=== PATIENT | female | born 1950 | race Caucasian/White ===

== ENCOUNTER 2024-03-16 20:23 | Inpatient (IN) | payer MEDICARE, OTHER, SELFPAY ==
[2024-03-16] VITALS (9 sets, daily range): BP systolic 164–181; BP diastolic 76–86; PULSE 70–80; RESP 18; TEMP 36.6; O2SAT 94–98; BMI 22.0
--- NOTE | 2024-03-16 21:03 | DI.RAD.S_ITS ---
PROCEDURE: XR HIP W PEL IF DONE LT 2V INDICATIONS: Fall, unable to ambulate TECHNIQUE: 2 views of the hip were acquired. COMPARISON: None. FINDINGS: Bones: Moderately impacted and displaced left subcapital hip fracture. Background degenerative changes. Soft tissues: No suspicious calcifications IMPRESSION: Left hip fracture Dictated by: Jered Pineda M.D. on 03/16/2024 at 22:07 Approved by: Jered Pineda M.D. on 03/16/2024 at 22:08
--- NOTE | 2024-03-16 21:23 | EKG_ITS ---
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
--- NOTE | 2024-03-16 21:28 | ED_ITS ---
HPI - Fall General Chief Complaint: Fall Stated Complaint: fall L hip Time Seen by Provider: 03/16/24 21:22 Source: patient and EMS Mode of arrival: EMS History of Present Illness HPI Narrative: 74-year-old female with history of multiple sclerosis diagnosed approximately 12 years ago, followed by [facility] Neurology, left knee pain awaiting elective surgery by local orthopedic surgeon Dr. Shepard scheduled for September 2024, tonight few hours ago fell outside their recreational vehicle, ground level fall, complaining of left-sided hip pain. No pain to the distal left lower extremity. No pain to either upper extremity. No head, neck, upper back, lower back, chest, abdominal discomfort. No pain to right lower extremity. She does not take blood thinner medications. Related Data Allergies Allergy/AdvReac Type Severity Reaction Status Date / Time No Known Drug Allergies Allergy Verified 03/16/24 20:32 Review of Systems Review of Systems Narrative: see HPI Patient History Social History Smoking Status: Never smoker Smoking Status: Never smoker alcohol intake frequency: 0-2 drinks per day Substance Use Type: does not use Exam Narrative Exam Narrative: GENERAL: Well-developed patient, in mild distress. HEAD: Atraumatic. Normocephalic. EYES: Pupils equal round and reactive. Extraocular motions intact. No scleral icterus. No injection or drainage. ENT: Nose without bleeding, purulent drainage. Throat without erythema, tonsillar hypertrophy or exudate. Airway patent. NECK: Trachea midline. Non tender CARDIOVASCULAR: Regular rate and rhythm without murmurs, gallops, or rubs. RESPIRATORY: Clear to auscultation. Breath sounds equal bilaterally. No wheezes, rales, or rhonchi. GASTROINTESTINAL: Abdomen soft, non-tender, nondistended. EXTREMITIES: Tenderness to left anterior hip, not particularly tender laterally, some slight shortening left lower extremity. Good distal pulses. BACK: Nontender without deformity or crepitance. No flank tenderness. NEURO: AOx3. Motor function grossly nonfocal, limited by left lower extremity orthopedic pain injury SKIN: No rash or erythema of visible areas Initial Vital Signs Initial Vital Signs: Vital Signs Temperature 97.9 F 03/16/24 20:29 Pulse Rate 75 03/16/24 20:29 Respiratory Rate 18 03/16/24 20:29 Blood Pressure 181/86 H 03/16/24 20:29 Pulse Oximetry 98 03/16/24 20:29 Oxygen Delivery Method Room Air 03/16/24 20:29 Course Orders Ordered: ED Orders 03/16/24 21:03 XR hip w pel if done LT 2V Stat 03/16/24 21:23 CBC Auto Diff [Complete Blood Count AUTO DIFF] Stat CMP [Comprehensive Metabolic Panel] Stat Prothrombin Time INR Stat EKG-12 Lead Stat 03/16/24 21:26 XR chest 1V Stat 03/16/24 23:02 Urinalysis and Microscopic Stat Urine Culture Stat Discontinued Medications Hydromorphone HCl (Hydromorphone 0.5 Mg Inj) 0.5 mg IV NOW ONE Stop: 03/16/24 21:25 Last Admin: 03/16/24 21:31 Dose: 0.5 mg Documented By: TAJ Ondansetron HCl (Ondansetron 4 Mg/2 Ml Inj) 4 mg IV NOW ONE Stop: 03/16/24 21:25 Last Admin: 03/16/24 21:31 Dose: 4 mg Documented By: TAJ Vital Signs Vital signs: Vital Signs - 8 hr 03/16/24 20:29 Temperature 97.9 F Pulse Rate 75 Respiratory Rate 18 Blood Pressure 181/86 H Pulse Oximetry 98 Oxygen Delivery Method Room Air MDM - Fall Lab Data Attestation: I reviewed the patient's lab results. 03/17/24 00:07 03/17/24 00:07 Labs: Lab Results 03/16/24 03/17/24 Range/Units 23:02 00:07 WBC 11.0 (4.5-11.0) X10^3/uL RBC 4.19 (4.0-5.2) X10^6/uL Hgb 13.8 (12.0-16.0) g/dL Hct 39.7 (36-46) % MCV 94.7 (80-100) fL MCH 33.1 (26-34) PG MCHC 34.9 (30-36) % RDW 12.6 (11.6-14.8) % Plt Count 244 (150-400) X10^3/uL Neut % (Auto) 80.0 H (50-75) % Lymph % (Auto) 14.3 L (25-40) % [place] % (Auto) 4.9 (3-14) % Eos % (Auto) 0.3 L (2-4) % Baso % (Auto) 0.5 (0-2) % Neut # (Auto) 8800 H (2623-3324) /uL Lymph # (Auto) 1600 (9709-0630) /uL [place] # (Auto) 500 (0-900) /uL Eos # (Auto) 0 (0-450) /uL Baso # (Auto) 100 (0-100) /uL PT 10.9 (9.4-12.5) SECONDS INR 1.0 (0.9-1.3) Sodium 139 (137-145) mmol/L Potassium 3.9 (3.4-5.1) mmol/L Chloride 104 (98-107) mmol/L Carbon Dioxide 22 (22-32) mmol/L BUN 16 (7-17) mg/dL Creatinine 0.47 L (0.52-1.04) mg/dL Estimated GFR > 60 (>60) mL/min BUN/Creatinine Ratio 34.0 H (6-22) Glucose 106 (80-110) mg/dL Calcium 9.0 (8.4-10.2) mg/dL Total Bilirubin 0.8 (0.2-1.3) mg/dL AST 32 (14-36) IU/L ALT 18 (<35) IU/L Alkaline Phosphatase 76 (38-126) U/L Total Protein 7.0 (6.3-8.2) g/dL Albumin 4.4 (3.5-5.0) g/dL Globulin 2.6 (1.7-4.1) g/dL Albumin/Globulin Ratio 1.7 (1.0-2.8) Urine Color Yellow Urine Appearance Sl cloudy Urine pH 6.0 (4.5-8.0) Ur Specific [place] 1.010 (1.000-1.035) Urine Protein Negative (Negative) Urine Glucose (UA) Negative (Negative) g/dL Urine Ketones Negative (NEGATIVE) Urine Occult Blood 1+ H (Negative) Urine Nitrate Negative (Negative) Urine Bilirubin Negative (NEGATIVE) Urine Urobilinogen 0.2 (0.2) E.U./dL Ur Leukocyte Esterase 3+ H (NEGATIVE) Urine RBC None seen (0-5/HPF) Urine WBC 1-5/hpf (0-5/HPF) Ur Squamous Epith Cells 0-1 /hpf (0-5/HPF) Urine Bacteria Few (2-10) H (None) Ur Culture Indicated? Specimen cultured Vol Urine Centrifuged 10ml (spun) Imaging Data Extremity x-ray #1: Radiologist's Impression: [address] [address] XRay Report Signed Patient: Monika Tillman MR#: [id number] : 1950 Acct:[id number] Age/Sex: 74 / F Date of Service: 03/16/24 Loc: ED Accession Number: [id number] Procedure: XR hip w pel if done LT 2V Ordering Provider: Mikey Barrett MD PROCEDURE: XR HIP W PEL IF DONE LT 2V INDICATIONS: Fall, unable to ambulate TECHNIQUE: 2 views of the hip were acquired. COMPARISON: None. FINDINGS: Bones: Moderately impacted and displaced left subcapital hip fracture. Background degenerative changes. Soft tissues: No suspicious calcifications IMPRESSION: Left hip fracture Dictated by: Jered Pineda M.D. on 03/16/2024 at 22:07 Approved by: Jered Pineda M.D. on 03/16/2024 at 22:08 Chest x-ray: My Impression: preop, no acute changes obvious Radiologist's Impression: [address] [address] XRay Report Signed Patient: Monika Tillman MR#: [id number] : 1950 Acct:[id number] Age/Sex: 74 / F Date of Service: 03/16/24 Loc: ED Accession Number: [id number] Procedure: XR chest 1V Ordering Provider: Mikey Barrett MD PROCEDURE: XR CHEST 1V INDICATIONS: preop, has hip fx TECHNIQUE: One view of the chest was acquired. COMPARISON: None. FINDINGS: Surgical changes and devices: None. Lungs and pleura: Low lung volumes. No dense consolidation or pleural effusion Mediastinum: Prominent maral bilaterally. Prominent heart size. Bones and chest wall: Degenerative findings IMPRESSION: Limited single view radiograph with low lung volumes. No acute abnormality. Prominent heart size and hilar structures, otherwise indeterminate on radiography. Dictated by: Jered Pineda M.D. on 03/16/2024 at 22:08 Approved by: Jered Pineda M.D. on 03/16/2024 at 22:09 ECG Data Interpretation: Normal sinus rhythm with rate of 75, no obvious ST segment elevation or depression changes. SC 178, QRS 92, QTC 435. MDM Narrative Medical decision making narrative: 74-year-old female had ground level fall, history of multiple sclerosis awaiting elective left knee surgery September 2024, no prior left hip problems, had hip pain after the fall, some shortening on exam but neurovascularly intact, some tenderness anterior left hip. Screening x-ray left hip shows subcapital fracture, no obvious pelvic ring fracture, await Radiology report. We will send preop labs and EKG and chest x-ray. We will contact Orthopedic surgery, anticipation of admission to hospitalist service Chest x-ray unremarkable, see radiology report. Chest x-ray without obvious ischemic changes. Serum studies still pending. 2314, case discussed with Orthopedic surgery Dr. Sullivan, he will consult, admit to hospitalist service. 003, still awaiting GFR/Creat results 0100, GFR normal, consult hospitalist 0120, case discussed with hospitalist Dr. Byers, accepts patient for admission to inpatient Critical Care Time Critical Care Time Total Critical Care Time: 35 Attestation: The high probability of a clinically significant, sudden or life threatening deterioration of the [Orthopedic, cardiopulmonary, musculoskeletal] system(s) required my full and direct attention, intervention and personal management. The aggregate critical care time was [35] minutes. This time is in addition to time spent performing reported procedures but includes the following: [x] Data Review and interpretation [x] Patient assessment and monitoring of vital signs [x] Documentation [x] Medication orders and management Discharge Plan Departure Patient Disposition: Admitted As Inpatient Clinical Impression: Subcapital fracture of left hip Admit Date/Time: 03/17/24 01:20
[2024-03-16] MEDS: ONDANSETRON 4 MG/2 ML INJ IV (21:31)
[2024-03-16] MEDS: HYDROMORPHONE 0.5 MG INJ IV (21:31)
[2024-03-16 23:16] LABS: Bilirubin Urine UA NEGATIVE (NEGATIVE); Color Urine UA YELLOW; Glucose Urine UA NEGATIVE (Negative); Ketones Urine UA NEGATIVE (NEGATIVE); Leukocyte Esterase Urine UA 3+ (NEGATIVE); Nitrite Urine UA NEGATIVE (Negative); Occult Blood Urine UA 1+ (Negative); Protein Urine UA NEGATIVE (Negative); Urobilinogen Urine UA 0.2 E.U./dL (0.2)
[2024-03-16 23:26] LABS: Appearance Urine UA SL CLOUDY
[2024-03-16 23:27] LABS: Bacteria Urine Few (2-10); Culture Indicated Urine Specimen Cultured; RBC Urine None Seen (0-5/HPF); Squamous Epithelial Cell Urine 0-1 /HPF (0-5/HPF); Urine Volume 10mL (spun); WBC Urine 1-5/HPF (0-5/HPF)
[2024-03-17 00:20] LABS: Prothrombin Time 10.9 SECONDS (9.4-12.5)
[2024-03-17 00:49] LABS: Add Manual Diff / Slide Review NO; Basophils Absolute Auto 100 /uL (0-100); Basophils Percent Auto 0.5 % (0-2); Eosinophils Absolute Auto 0 /uL (0-450); Eosinophils Percent Auto 0.3 % (2-4); Hematocrit 39.7 % (36-46); Hemoglobin 13.8 g/dL (12.0-16.0); Lymphocytes Absolute Auto 1600 /uL (1100-4500); Lymphocytes Percent Auto 14.3 % (25-40); Mean Corpuscular HGB Conc 34.9 % (30-36); Mean Corpuscular Hemoglobin 33.1 PG (26-34); Mean Corpuscular Volume 94.7 fL (80-100); Monocytes Absolute Auto 500 /uL (0-900); Monocytes Percent Auto 4.9 % (3-14); Neutrophils Absolute Auto 8800 /uL (1500-7000); Platelet Count 244 X10^3/uL (150-400); Red Blood Cell Count 4.19 X10^6/uL (4.0-5.2); Red Cell Distribution Width 12.6 % (11.6-14.8)
[2024-03-17 00:55] LABS: Alanine Aminotransferase 18 IU/L (<35); Albumin 4.4 g/dL (3.5-5.0); Albumin Globulin Ratio 1.7 (1.0-2.8); Alkaline Phosphatase 76 U/L (38-126); Aspartate Aminotransferase 32 IU/L (14-36); Bilirubin Total 0.8 mg/dL (0.2-1.3); Blood Urea Nitrogen 16 mg/dL (7-17); Carbon Dioxide 22 mmol/L (22-32); Chloride 104 mmol/L (98-107); Estimated Glomerular Filt Rate > 60 mL/min (>60); Globulin 2.6 g/dL (1.7-4.1); Glucose 106 mg/dL (80-110); HEMOLYSIS < 15 (0-50); Potassium 3.9 mmol/L (3.4-5.1); Sodium 139 mmol/L (137-145)
[2024-03-17] MEDS: HYDROMORPHONE 0.5 MG INJ IV ×2 (01:51→21:22)
[2024-03-17 01:53] VITALS: BP 139/73; PULSE 82; RESP 16; TEMP 36.3; O2SAT 94
[2024-03-17 02:00] VITALS: BP 142/83; PULSE 79; RESP 12; TEMP 36.2; O2SAT 95
[2024-03-17 02:24] VITALS: BMI 22.0
[2024-03-17] MEDS: OXYCODONE IR 5 MG TABLET PO ×3 (02:33→17:32)
[2024-03-17] MEDS: ONDANSETRON 4 MG/2 ML INJ IV ×2 (02:34→07:20)
[2024-03-17] MEDS: SODIUM CHLORIDE 0.9% 1,000 ML 100 ML IV ×2 (02:37→15:30)
--- NOTE | 2024-03-17 02:47 | PM.HP.1 ---
History of Present Illness History of Present Illness Chief complaint: fall L hip Narrative: 74 year old female with past medical history of multiple sclerosis diagnosed 12 years ago and being followed by [facility] neurology group and severe left knee pain sceondary to OA awaiting surgery in 09/2024 presents with a ground level fall. Per the patient's report, the patient states that she was walking when she accidentally loss balance and fell onto her left hip. The patient denies any head injury or LOC. The patient also denies any recent fever, chills, nausea, vomiting, diarrhea, chest pain or shortness of breath. The patient states that she has significant pain in her left hip post fall and unable to ambulate. In our ER, the patient was hemodynamically stable. Xray shows left hip fracture. Orthopedic surgeon consulted and recommendedd admission for possible surgical intervention in AM. Labs and EKG are benign. However UA shows some LEs and few bacteria. PFSH Social History household members: spouse Smoking Status: Never smoker Meds Home Medications and Allergies Home Medications Medication Instructions Recorded Confirmed Type Imitrex 50 mg DIRECTED PRN Migraine 03/17/24 03/17/24 History Headache bupropion HCl 150 mg 24 hr tablet, 150 mg PO DAILY 03/17/24 03/17/24 History extended release gabapentin 300 mg capsule PO 4XD PRN restless leg 03/17/24 History metronidazole 1 % topical gel 1 applic topical DAILY 03/17/24 03/17/24 History oxcarbazepine 300 mg tablet 300 mg PO 3XD PRN Restless Leg(S) 03/17/24 03/17/24 History Allergies Allergy/AdvReac Type Severity Reaction Status Date / Time No Known Drug Allergies Allergy Verified 03/16/24 20:32 Review of Systems Review of Systems Narrative: 12 points ROS of systems are negative except for what was mentioned per HPI. Exam Vital Signs (past 8 hours): - 03/16/24 20:28 03/16/24 20:29 03/16/24 20:30 Temperature 97.9 F Pulse Rate 74 75 70 Respiratory Rate 18 Blood Pressure 181/86 H Pulse Oximetry 94 98 95 Oxygen Delivery Method Room Air Room Air 03/16/24 20:30 03/16/24 21:00 03/16/24 21:00 Temperature Pulse Rate 72 Respiratory Rate Blood Pressure 175/82 H 164/76 H Pulse Oximetry 98 Oxygen Delivery Method 03/16/24 21:30 03/16/24 22:00 03/16/24 22:30 Temperature Pulse Rate 71 70 71 Respiratory Rate Blood Pressure Pulse Oximetry 98 95 95 Oxygen Delivery Method 03/16/24 23:00 03/16/24 23:30 03/17/24 01:53 Temperature 97.4 F L Pulse Rate 80 74 82 Respiratory Rate 16 Blood Pressure 139/73 Pulse Oximetry 96 97 94 Oxygen Delivery Method Room Air Room Air Oxygen Delivery Method Room Air Narrative Exam Narrative: GENERAL: The patient is not in any acute distressed. Awake and alert. HEENT: Nonicteric sclerae, PERRLA, EOMI. Oropharynx clear. Moist mucous membranes. Conjunctivae appear well perfused. HEART: Regular rate and rhythm without murmurs. No lower extremities edema. LUNGS: Clear to auscultation bilaterally. No wheezing, crackles or rhonchi ABDOMEN: Soft, positive bowel sounds, nontender. SKIN: No rash, no excessive bruising, petechiae, or purpura. NEUROLOGIC: AxO x 3. Cranial nerves II-XII intact without motor/sensory deficit. though limited movement in LLEs due to left hip pain. Objective Labs 03/17/24 00:07 03/17/24 00:07 Labs: Laboratory Results - last 24 hr 03/16/24 03/17/24 23:02 00:07 WBC 11.0 RBC 4.19 Hgb 13.8 Hct 39.7 MCV 94.7 MCH 33.1 MCHC 34.9 RDW 12.6 Plt Count 244 Neut % (Auto) 80.0 H Lymph % (Auto) 14.3 L [place] % (Auto) 4.9 Eos % (Auto) 0.3 L Baso % (Auto) 0.5 Neut # (Auto) 8800 H Lymph # (Auto) 1600 [place] # (Auto) 500 Eos # (Auto) 0 Baso # (Auto) 100 PT 10.9 INR 1.0 Sodium 139 Potassium 3.9 Chloride 104 Carbon Dioxide 22 BUN 16 Creatinine 0.47 L Estimated GFR > 60 BUN/Creatinine Ratio 34.0 H Glucose 106 Calcium 9.0 Total Bilirubin 0.8 AST 32 ALT 18 Alkaline Phosphatase 76 Total Protein 7.0 Albumin 4.4 Globulin 2.6 Albumin/Globulin Ratio 1.7 Urine Color Yellow Urine Appearance Sl cloudy Urine pH 6.0 Ur Specific [place] 1.010 Urine Protein Negative Urine Glucose (UA) Negative Urine Ketones Negative Urine Occult Blood 1+ H Urine Nitrate Negative Urine Bilirubin Negative Urine Urobilinogen 0.2 Ur Leukocyte Esterase 3+ H Urine RBC None seen Urine WBC 1-5/hpf Ur Squamous Epith Cells 0-1 /hpf Urine Bacteria Few (2-10) H Ur Culture Indicated? Specimen cultured Vol Urine Centrifuged 10ml (spun) Assessment & Plan Assessment & Plan narrative: Left hip fracture secondary to ground level fall. Admit to medical inpatient. NPO. IVF. Pain control. Appreciates orthopedic surgical manageent. Likely OR in AM. Patient is medically cleared for OR in AM. PT/OT post op. Possible UTI with positive LEs a some bacteria on UA. IV Ceftriaxone. MS. Being followed by [facility] neurology group as outpatient. No sign of MS flare. DVT PPx SCDs for now as plan for OR in AM. Code status full code Disposition rehab in 2 days Time-Based Coding :: [TOTAL MINUTES] spent with patient and on the chart (including review of chart, obtaining history, exam, reviewing outside data, placing orders, documenting exam and treatment plan, and counseling patient) on [DATE].
[2024-03-17] MEDS: METOCLOPRAMIDE 10 MG/2 ML INJ 5 MG IV (03:46)
--- NOTE | 2024-03-17 04:13 | PC.NURSE ---
pt received from ED. Alert,oriented x4, on room air. L hip fracture, pulses palpable,able to wiggle toes,sensation present. voids per purewick, however pt still c/o urgency, still needing to go and pelvic discomfort/fullness. bladder scan done PVR 900. nauseous and dry heaving despite receiving MD chika updated, with orders, pt updated and agreeable. IV Reglan given, langston cath placed aseptically, tolerated well by pt. NPO per order, pt aware.
[2024-03-17 06:21] LABS: Add Manual Diff / Slide Review NO; Basophils Absolute Auto 0 /uL (0-100); Basophils Percent Auto 0.3 % (0-2); Eosinophils Absolute Auto 0 /uL (0-450); Hemoglobin 13.9 g/dL (12.0-16.0); Lymphocytes Absolute Auto 700 /uL (1100-4500); Lymphocytes Percent Auto 7.8 % (25-40); Mean Corpuscular HGB Conc 34.7 % (30-36); Mean Corpuscular Hemoglobin 32.9 PG (26-34); Mean Corpuscular Volume 94.8 fL (80-100); Monocytes Absolute Auto 400 /uL (0-900); Monocytes Percent Auto 4.2 % (3-14); Neutrophils Absolute Auto 7900 /uL (1500-7000); Neutrophils Percent Auto 87.7 % (50-75); Platelet Count 234 X10^3/uL (150-400); Red Blood Cell Count 4.22 X10^6/uL (4.0-5.2); Red Cell Distribution Width 12.6 % (11.6-14.8)
[2024-03-17 06:30] LABS: BUN Creatinine Ratio 33.3 (6-22); Blood Urea Nitrogen 15 mg/dL (7-17); Calcium 8.7 mg/dL (8.4-10.2); Carbon Dioxide 23 mmol/L (22-32); Chloride 103 mmol/L (98-107); Estimated Glomerular Filt Rate > 60 mL/min (>60); Glucose 119 mg/dL (80-110); HEMOLYSIS < 15 (0-50); Potassium 3.9 mmol/L (3.4-5.1); Sodium 136 mmol/L (137-145)
[2024-03-17] MEDS: cefTRIAXone 1,000 MG in SODIUM CHLORIDE 0.9% 100 ML 200 MG IV (06:53)
[2024-03-17 07:00] VITALS: BP 167/94; PULSE 74; RESP 16; TEMP 36.2; O2SAT 98
--- NOTE | 2024-03-17 07:16 | PM.HP.1 ---
History of Present Illness History of Present Illness Date Patient Seen: 03/17/24 Chief complaint: fall L hip Narrative: From night doctor: 74 year old female with past medical history of multiple sclerosis diagnosed 12 years ago and being followed by [facility] neurology group and severe left knee pain sceondary to OA awaiting surgery in 09/2024 presents with a ground level fall. Per the patient's report, the patient states that she was walking when she accidentally loss balance and fell onto her left hip. The patient denies any head injury or LOC. The patient also denies any recent fever, chills, nausea, vomiting, diarrhea, chest pain or shortness of breath. The patient states that she has significant pain in her left hip post fall and unable to ambulate. In our ER, the patient was hemodynamically stable. Xray shows left hip fracture. Orthopedic surgeon consulted and recommendedd admission for possible surgical intervention in AM. Labs and EKG are benign. However UA shows some LEs and few bacteria. Additional infrmation: She has a history of migraine headaches which are responsive to sumatriptan. She was a headache this morning. This is throbbing and there is some photophobia. She was some nausea as well. Her hip pain is controlled. Orthopedic surgery did see her this morning are discussing repair of the hip today versus tomorrow depending on OR schedule. [facility] Social History household members: spouse Smoking Status: Never smoker Meds Home Medications and Allergies Home Medications Medication Instructions Recorded Confirmed Type Imitrex 50 mg DIRECTED PRN Migraine 03/17/24 03/17/24 History Headache bupropion HCl 150 mg 24 hr tablet, 150 mg PO DAILY 03/17/24 03/17/24 History extended release gabapentin 300 mg capsule PO 4XD PRN restless leg 03/17/24 History metronidazole 1 % topical gel 1 applic topical DAILY 03/17/24 03/17/24 History oxcarbazepine 300 mg tablet 300 mg PO 3XD PRN Restless Leg(S) 03/17/24 03/17/24 History Allergies Allergy/AdvReac Type Severity Reaction Status Date / Time No Known Drug Allergies Allergy Verified 03/16/24 20:32 Review of Systems Review of Systems Narrative: All else reviewed and otherwise unremarkable except as noted in the history and physical. Exam Vital Signs (past 8 hours): - 03/16/24 23:30 03/17/24 01:53 03/17/24 02:00 Temperature 97.4 F L 97.2 F L Pulse Rate 74 82 79 Respiratory Rate 16 12 Blood Pressure 139/73 142/83 H Pulse Oximetry 97 94 95 Oxygen Delivery Method Room Air Room Air Oxygen Flow Rate 0 Oxygen Delivery Method Room Air Oxygen Flow Rate 0 Narrative Exam Narrative: NAD, alert and oriented, fluent speech, calm. Appears uncomfortable. Normocephalic skull, EOMI, anicteric sclera, symmetric pupils. Oropharynx unremarkable, no droop. Neck supple, midline trachea, no adenopathy. Lungs clear, normal rate and effort. Heart regular, no murmur gallop or rub. Abdomen is soft, non distended and non tender. Extremities are free of edema. Skin is free of rash or lesions. Joints are not swollen or deformed. Judgment appears to be normal. Objective ECG Impression: Normal sinus rhythm Imaging Multiple studies:: Radiologist's impression: Hip x-ray: Bones: Moderately impacted and displaced left subcapital hip fracture. Background degenerative changes. Chest x-ray: Limited single view radiograph with low lung volumes. No acute abnormality. Prominent heart size and hilar structures, otherwise indeterminate on radiography. Labs 03/17/24 05:34 03/17/24 05:34 Labs: Laboratory Results - last 24 hr 03/16/24 03/17/24 03/17/24 23:02 00:07 05:34 WBC 11.0 9.0 RBC 4.19 4.22 Hgb 13.8 13.9 Hct 39.7 40.0 MCV 94.7 94.8 MCH 33.1 32.9 MCHC 34.9 34.7 RDW 12.6 12.6 Plt Count 244 234 Neut % (Auto) 80.0 H 87.7 H Lymph % (Auto) 14.3 L 7.8 L [place] % (Auto) 4.9 4.2 Eos % (Auto) 0.3 L 0.0 L Baso % (Auto) 0.5 0.3 Neut # (Auto) 8800 H 7900 H Lymph # (Auto) 1600 700 L [place] # (Auto) 500 400 Eos # (Auto) 0 0 Baso # (Auto) 100 0 PT 10.9 INR 1.0 Sodium 139 136 L Potassium 3.9 3.9 Chloride 104 103 Carbon Dioxide 22 23 BUN 16 15 Creatinine 0.47 L 0.45 L Estimated GFR > 60 > 60 BUN/Creatinine Ratio 34.0 H 33.3 H Glucose 106 119 H Calcium 9.0 8.7 Total Bilirubin 0.8 AST 32 ALT 18 Alkaline Phosphatase 76 Total Protein 7.0 Albumin 4.4 Globulin 2.6 Albumin/Globulin Ratio 1.7 Urine Color Yellow Urine Appearance Sl cloudy Urine pH 6.0 Ur Specific [place] 1.010 Urine Protein Negative Urine Glucose (UA) Negative Urine Ketones Negative Urine Occult Blood 1+ H Urine Nitrate Negative Urine Bilirubin Negative Urine Urobilinogen 0.2 Ur Leukocyte Esterase 3+ H Urine RBC None seen Urine WBC 1-5/hpf Ur Squamous Epith Cells 0-1 /hpf Urine Bacteria Few (2-10) H Ur Culture Indicated? Specimen cultured Vol Urine Centrifuged 10ml (spun) Assessment & Plan Assessment & Plan narrative: 1. Left hip fracture secondary to ground level fall. Admit to medical inpatient. NPO. IVF. Pain control. Appreciates orthopedic surgical manageent. Likely OR in AM. Patient is medically cleared for OR in AM. PT/OT post op. 2. Possible UTI with positive LEs a some bacteria on UA. IV Ceftriaxone. 3. MS. Being followed by [facility] neurology group as outpatient. No sign of MS flare. 4. Migraine headache, new and active. PLAN: -NPO -sumatriptan now -orthopedic surgery is planning ORIF, likely today. -continue IV fluids, [place] catheter. -ASA b.i.d. for prophylaxis. DVT PPx SCDs for now as plan for OR in AM. Code status full code Disposition rehab in 2 days Time-Based Coding :: 35 min spent with patient and on the chart (including review of chart, obtaining history, exam, reviewing outside data, placing orders, documenting exam and treatment plan, and counseling patient) on 03/17. Quality MIPS - Admit I confirm the patient?s Advance Care Plan is present, Code status is documented, Surrogate decision maker is in patient?s record [If Yes, STOP here]: Yes MIPS - Meds 'Current medications' to include all prescriptions, [id number] products, herbals, cannabis/cannabidiol products, and vitamin/mineral/dietary (nutritional) supplements. I have utilized all available resources to obtain, update, or review the patient?s current medications. [If Yes, STOP here]: Yes
--- NOTE | 2024-03-17 08:36 | PC.NURSE ---
Pt alert and oriented, conversant. Just had antiemeticgiven by noc shift at 07:00. Pt rstful cool cloth over eyes.
--- NOTE | 2024-03-17 09:13 | PM.CN ---
History of Present Illness Consult details Date Patient Seen: 03/17/24 Time Patient Seen: 09:13 Chief complaint: fall L hip Narrative: 74-year-old female who yesterday while working in the garden tripped and fell landing on her left side sustaining a left femoral neck fracture. Patient denies hitting her head or any loss of consciousness. Denies any syncopal episodes. Denies any other injuries. After the fall was unable to bear weight on the left leg and was taken to the emergency room where x-rays showed a displaced femoral neck fracture. Patient denies any significant hip pain before the fall. Does have significant arthritis to the left knee and was scheduled for a total knee replacement by Dr. Shepard sometime next year. Meds Home Medications and Allergies Home Medications Medication Instructions Recorded Confirmed Type Imitrex 50 mg DIRECTED PRN Migraine 03/17/24 03/17/24 History Headache bupropion HCl 150 mg 24 hr tablet, 150 mg PO DAILY 03/17/24 03/17/24 History extended release gabapentin 300 mg capsule PO 4XD PRN restless leg 03/17/24 History metronidazole 1 % topical gel 1 applic topical DAILY 03/17/24 03/17/24 History oxcarbazepine 300 mg tablet 300 mg PO 3XD PRN Restless Leg(S) 03/17/24 03/17/24 History Allergies Allergy/AdvReac Type Severity Reaction Status Date / Time No Known Drug Allergies Allergy Verified 03/16/24 20:32 Exam Vital Signs (past 8 hours): - 03/17/24 01:53 03/17/24 02:00 03/17/24 07:00 Temperature 97.4 F L 97.2 F L 97.1 F L Pulse Rate 82 79 74 Respiratory Rate 16 12 16 Blood Pressure 139/73 142/83 H 167/94 H Pulse Oximetry 94 95 98 Oxygen Delivery Method Room Air Oxygen Flow Rate 0 0 Oxygen Delivery Method Room Air Oxygen Flow Rate 0 Narrative Exam Narrative: Patient is alert and in some discomfort to the left side. Full range of motion of bilateral upper extremities and no pain or instability to the shoulder elbows or wrists bilaterally. Compartments are soft neurovascularly intact. Normal range of motion and function of the right lower extremity. No swelling or instability to the knee or ankle on the right side. No pain with range of motion of the right hip. Able to dorsiflex and plantar flex the left toe and ankle. Compartments are soft to the left leg. No swelling instability to the left ankle or knee. Palpable pedal pulses. Objective Labs 03/17/24 05:34 03/17/24 05:34 Labs: Laboratory Results - last 24 hr 03/16/24 03/17/24 03/17/24 23:02 00:07 05:34 WBC 11.0 9.0 RBC 4.19 4.22 Hgb 13.8 13.9 Hct 39.7 40.0 MCV 94.7 94.8 MCH 33.1 32.9 MCHC 34.9 34.7 RDW 12.6 12.6 Plt Count 244 234 Neut % (Auto) 80.0 H 87.7 H Lymph % (Auto) 14.3 L 7.8 L King[place]isher % (Auto) 4.9 4.2 Eos % (Auto) 0.3 L 0.0 L Baso % (Auto) 0.5 0.3 Neut # (Auto) 8800 H 7900 H Lymph # (Auto) 1600 700 L Kingfisher # (Auto) 500 400 Eos # (Auto) 0 0 Baso # (Auto) 100 0 PT 10.9 INR 1.0 Sodium 139 136 L Potassium 3.9 3.9 Chloride 104 103 Carbon Dioxide 22 23 BUN 16 15 Creatinine 0.47 L 0.45 L Estimated GFR > 60 > 60 BUN/Creatinine Ratio 34.0 H 33.3 H Glucose 106 119 H Calcium 9.0 8.7 Total Bilirubin 0.8 AST 32 ALT 18 Alkaline Phosphatase 76 Total Protein 7.0 Albumin 4.4 Globulin 2.6 Albumin/Globulin Ratio 1.7 Urine Color Yellow Urine Appearance Sl cloudy Urine pH 6.0 Ur Specific [place] 1.010 Urine Protein Negative Urine Glucose (UA) Negative Urine Ketones Negative Urine Occult Blood 1+ H Urine Nitrate Negative Urine Bilirubin Negative Urine Urobilinogen 0.2 Ur Leukocyte Esterase 3+ H Urine RBC None seen Urine WBC 1-5/hpf Ur Squamous Epith Cells 0-1 /hpf Urine Bacteria Few (2-10) H Ur Culture Indicated? Specimen cultured Vol Urine Centrifuged 10ml (spun) PFSH Social History household members: spouse Tobacco & Substance Use Smoking Status: Never smoker Assessment & Plan Assessment & Plan narrative: Patient with a left femoral neck fracture. Based on the amount of displacement this will most likely require a left hip hemiarthroplasty. This has been discussed with the patient. I will discuss her with Dr. Shepard to see if we can find a timeframe on surgery to fix her femoral neck fracture. The risk, benefits, alternatives, possible complications, operative course, and postop outcomes were discussed. Complications including but not limiting to bleeding, infection, fracture, nerve injury, continued pain postoperatively or instability postoperatively were discussed in detail. Medical complications including but not limited to deep venous thrombosis event, anesthesia complications with excessive bleeding, vascular events or cardiac events and other possible complications were discussed in detail. Need for postoperative rehabilitation and anticipated hospital stay and clinical course were discussed in detail. Patient acknowledges understanding and elects to proceed with surgery. Time-Based Coding :: [TOTAL MINUTES] spent with patient and on the chart (including review of chart, obtaining history, exam, reviewing outside data, placing orders, documenting exam and treatment plan, and counseling patient) on [DATE].
--- NOTE | 2024-03-17 09:27 | PT-IP ANOTE ---
PT eval order received. pt with L hip fx and plan for sx. will d/c PT eval order at this time and will await new order post-op
[2024-03-17] MEDS: SUMAtriptan 6 MG/0.5 ML VIAL SUBCUT (10:34)
--- NOTE | 2024-03-17 15:08 | CM.DANOTE ---
Patient is a 74 yo female who was admitted INPT Status on 03/17/24 for GLF/Hip Fx. Pt has [employer] for insurance and her PCP is not listed but she has [facility] for her MS at baseline. EMR was reviewed. Per , pt with hx of MS and had accidental GLF with hip fx and possible UTI. Per Ortho, plan is surgery tomorrow Sun 03/18 at 0800. SW met bedside with pt and explained role and she confirms she lives at home in [place] with her and is active and independent at baseline and has used a cane for mobility for the past 10 yrs due to her MS. Pt drives and denies any hx of HH or SNF. Pt states that she and were supposed to leave for [place] this week and take their RV down to their home in [place]. Pt states she plans to discharge to her Dtr and TRINA's house in [place] at discharge for about a week while her spouse is preparing their RV for travel. Pt states in their housing complex in [place] they have a PT clinic right there that she has used before and plans to use again. Pt hopeful to do well with PT post surgery to be able to d/c to family's house and outpt f/u. SW discussed benefit to having family be bedside closer to discharge to participate in CG training prior to d/c to confirm safe d/c and pt acknowledges understanding and confirms her TRINA is currently not working as he works at [employer] and the [employer] is on Strike so he is available to assist and transport. Plan: SW to follow closely for hip surgery tomorrow morning and then PT eval to determine safe plan of home with family assist and outpt f/u. NOEMI Valdes Discharge Planning/Care Management CM Discharge Assessment Start: 03/17/24 15:05 Freq: Status: Active Protocol: Document 03/17/24 15:05 BF (Rec: 03/17/24 15:08 BF [id number]) Discharge Planning Assessment Assigned Nursing Home Manager NOEMI Cornejo DPOA/Assigned Designee Name spouse Randolph Contact Information [phone] Advance Directives? No Advance Directives on File No History Provided By Patient,Medical Record Has Patient been admitted in last 30 No days? Prior Living Arrangements House Household Members spouse Type of transporation used prior to Drives own vehicle admit Independent with ADL's Yes Is patient alert and oriented? Yes Caregiver for Another No DME Already Rented / Owned Cane Patient/Family Preference Home with Home Health,OP PT Therapy Comment Pending PT eval post surg Barriers to Discharge No Discharge Plan Home Community Services Physical Therapy Transportation Arrangement Son and DIL plan to transport pt to their house Additional Comment Pending PT eval post surg Whiteboard Updated in Patient Room with Yes name and ext. # of Nursing Home Manager Review Status In Process Please Provide Date Initial DC 03/17/24 Assessment Was Performed Next Review Type Continued Stay Review
[2024-03-17 16:00] VITALS: BP 145/86; PULSE 81; RESP 16; TEMP 37; O2SAT 99
[2024-03-17 20:00] VITALS: BP 164/89; PULSE 83; RESP 15; TEMP 37.4; O2SAT 95
[2024-03-18] VITALS (12 sets, daily range): BP systolic 126–150; BP diastolic 71–94; PULSE 68–105; RESP 12–16; TEMP 36.3–37.2; O2SAT 93–99
--- NOTE | 2024-03-18 | DI.RAD.S_ITS ---
PROCEDURE: XR PELVIS 1-2V INDICATIONS: POST OP LHA TECHNIQUE: 1 view of the lower pelvis acquired. COMPARISON: [facility], , XR PELVIS 1-2V, 03/18/2024, 9:26. FINDINGS: Bones: Patient is status post left hip arthroplasty, with hardware components in expected positions. The hip joint appears congruent. The visualized bony structures appear intact. Soft tissues: Overlying postoperative changes are noted. No suspicious soft tissue densities. IMPRESSION: Expected post-operative appearance of a hip arthroplasty. Dictated by: Oswaldo Martinez M.D. on 03/18/2024 at 10:28 Approved by: Oswaldo Martinez M.D. on 03/18/2024 at 10:28
[2024-03-18] MEDS: OXYCODONE IR 5 MG TABLET PO (03:11)
[2024-03-18] MEDS: SODIUM CHLORIDE 0.9% 1,000 ML 100 ML IV (03:13)
[2024-03-18] MEDS: cefTRIAXone 1,000 MG in SODIUM CHLORIDE 0.9% 100 ML 200 MG IV (06:04)
--- NOTE | 2024-03-18 07:14 | PM.PN.1 ---
Subjective Subjective Interval history: Admitted with a hip fracture and awaiting surgery. Subjective: She was doing well after surgery today. Her hip pain is gone from an 8 to a 2/10. She does not have a headache today. No chest pain, or dyspnea. Exam Vital Signs (past 8 hours): - 03/18/24 04:53 Temperature 99.0 F Pulse Rate 78 Respiratory Rate 16 Blood Pressure 141/80 H Pulse Oximetry 94 Oxygen Flow Rate 0 Oxygen Delivery Method Room Air Oxygen Flow Rate 0 Narrative Exam Narrative: NAD, alert and oriented. Fluent speech. Lungs are clear, normal rate and effort. Heart is regular, no murmur gallop or rub. Abdomen is soft, non distended. Extremities are free of edema. Objective Labs 03/17/24 05:34 03/17/24 05:34 [facility] Social History household members: spouse Smoking Status: Never smoker Assessment & Plan Assessment & Plan narrative: 1. Left hip fracture secondary to ground level fall. Present on admission and active. S/P ORIF 03/18. 2. Possible UTI with positive LEs a some bacteria on UA. Present on admission and active. 3. MS. Present on admission and active. -Being followed by [facility] neurology group as outpatient. No sign of MS flare. 4. Migraine headache, new and improved. PLAN: -ASA BID -PT and OT evals for discharge planning. -Pain control. CHANEL: 03/20, home vs. SNF. Time-Based Coding :: [TOTAL MINUTES] spent with patient and on the chart (including review of chart, obtaining history, exam, reviewing outside data, placing orders, documenting exam and treatment plan, and counseling patient) on [DATE].
--- NOTE | 2024-03-18 07:57 | PM.PREOP ---
Pre-operative Note Interval Note History & Physical reviewed/Exam performed by Physician: Yes Changes to H&P: No H&P completed within 30 days and has changed as indicated here:: Ground level fall onto left hip, left hip fracture. Patient has MS. Baseline left side weaker than right. Uses a walker. Dorsiflexion/ plantar flexion intact
[2024-03-18] MEDS: SUMAtriptan 25 MG TABLET 50 MG PO (07:58)
--- NOTE | 2024-03-18 07:58 | P.OP_ITS ---
Operative Date/Time/Diagnoses Date of procedure: 03/18/24 Time of procedure: 08:15 Pre-op diagnosis: Left femoral neck fracture displaced Multiple sclerosis Osteoporotic hip fracture Post-op diagnosis: same Procedure & Clinicians Procedure: Left hip hemiarthroplasty for femoral neck fracture CPT code 29878 Same procedure as scheduled: Yes Indications: Patient is a 74-year-old female with left displaced femoral neck fracture. She has MS baseline left side is weaker we will often use a walker for ambulation but otherwise fairly healthy and was getting ready to have a knee replacement in the next year with another orthopedic surgeon. She states she fell directly onto her left hip. No loss of consciousness no other injuries. She was indicated for cemented left hip hemiarthroplasty to avoid the morbidity and mortality associated with prolonged immobilization. The risks and benefits of the procedure have been discussed with the patient and given the opportunity to ask questions. The risks of surgery include but are not limited to infection, fracture, persistence of pain, damage to nerves and blood vessels, posttraumatic arthritis, DVT, PE, cardiopulmonary complications and . The patient expressed a thorough understanding of the risks and benefits of surgery and has elected to proceed. Consent was signed. Surgeon: Na Ruiz Salesperson Furs: Cruz Damian Anesthesia Type: General and Local Operative Notes Findings: Displaced left femoral neck fracture Closure Type: primary Specimen(s): none sent Prosthetic devices, grafts, tissues, transplants, or devices: Shepard and nephew Synergy cemented stem size 13 Tandem unipolar head size 48 Neck standard offset +4 10 mm centralizer, Small restrictor Estimated Blood Loss (mL): 150 Blood products transfused: none Tourniquet time (min): 0 Procedure in detail: During the operation, the services of a physician assistant professor surgical technology were medically indicated and necessary to provide the exposure of the operative site for the surgical procedure and to maintain the limb in a proper position to carry out the operation safely and efficiently. Without a qualified staff assistant being present this would extended the operative procedure and made the procedure technically more difficult to perform. Hemiarthroplasty for femoral neck fracture CPT code 86559. Patient was seen in the preoperative area the site of surgery was marked and informed consent confirmed. This is the left hip. The patient was brought back to the operating room by the anesthesia team. Patient was positioned supine on the operative table. General anesthetic was administered. Patient was then moved into the lateral position. The hip quick sketch artist positioner pads were then placed. A well-padded axillary roll was placed and the arms were appropriately positioned. The affected lower extremity was prepped and draped from the ankle to the iliac crest with ChloraPrep in the standard fashion sterile drapes were placed. Formal time-out procedure was performed confirming the patient's side and site of surgery, presence of informed consent, administration of appropriate preoperative antibiotics. Hip was approached through a standard posterior approach. Dissection was carried down through the skin and subcutaneous tissues sharply through the skin and then with the Bovie through the subcutaneous tissues. The fascia jesika was exposed and opened. Fascia was opened using the Bovie and the gluteus kiera was spread with finger retraction. The Charnley retractor was placed. The inflamed bursa was resected. The piriformis was then identified. A Cobra retractor was placed under the gluteus medius to help expose the external rotators. The piriformis and short external rotators were tagged with a 2 Ethibond and divided of the trochanter. These were then retracted posteriorly to protect sciatic nerve. The femur was then flexed and internally rotated to present the femoral neck and the fracture. A corkscrew and a Rodríguez were used to remove the femoral head from the acetabulum. This was measured to fit a 48 mm head. Next the femur was presented. A clean-up neck cut was made in a minimal fashion. The trial head size was trialed in the acetabulum. Attention was then turned to the femur. The canal was opened with a box cutting osteotome. This followed by the canal finer and a lateralizing Reamer. The tapered reamers were then used up to a size 11. Then broaching was sequentially done up to a size 11. Trial components were placed. There was noted to be some substance so reamers and broaches were used again up to a size 13, which fit well with good stability. Initially was trialed with a standard offset and +0 was felt to be short was re trialed with a +4 with the appropriate length and stability. The patient was stable in the position of sleep, squatting and could be put through a range of motion with 70? of internal rotation without dislocation. This was felt to be appropriate. An intraop a AP pelvis x-ray was obtained to assess component position. Final components were then selected. The final stem was a size 13. Femoral canal was prepared . The distal small restrictor was placed approximately 1 cm distal to the end of the planned implant. The bone was meticulously cleaned with pulse lavage. Canal was then packed with epinephrine soaked gauze. Two packages of cement were mixed and carefully pressurized into the femoral canal. The femoral component was then placed without difficulty. This was held in place until the cement hardened. The repeat trial reduction showed good range of motion and stability. The final head and neck were then carefully placed. The wound was irrigated. The capsule and muscular flap was repaired with the 2. Ethibond. Next the short external rotators were repaired to the greater trochanter through drill holes in the greater trochanter using the 2.5 drill and a Hewson suture Passer with Ethibond and FiberWire. These were tied with the leg in abduction. The wound was then irrigated again. Local anesthetic with a mixture of bupivacaine and 266 mg of Exparel was injected for postoperative pain control. The fascia jesika was closed with 0 Vicryl and the subcutaneous layer was closed with 2-0 Vicryl and the skin with yajaira. An Aquacel dressing was placed. A pillow was placed between the legs for protection. The drapes removed and the patient was taken to the recovery room in good condition. There no immediate complications from this procedure. All counts were correct. Postoperative AP pelvis x-ray was obtained in the PACU showed appropriate alignment of the cemented hip hemiarthroplasty with no evidence of fracture. Complications: none Post-operative Condition: stable Disposition: PACU Plan for aftercare: Weightbear as tolerated with assistive devices. Posterior hip precautions x6 weeks. Lovenox 40 mg subQ daily x4 weeks for DVT prophylaxis Follow up in Orthopedic Clinic 2 weeks for staple removal.
[2024-03-18] MEDS: CEFAZOLIN 2 GM/100 ML PREMIX 100 ML IV ×3 (08:30→23:39)
--- NOTE | 2024-03-18 08:47 | SUR.OPER ---
Lateral on padded OR bed. Gel axillary roll. Arms secured on padded armboard with pillow supporting top arm. Padded hip positioner braces x4 - anterior and posterior chest and pelvis. Additional gel pad used anterior pelvis. Gel pad under bottom leg from knee to foot and secured with tape over sheet.
[2024-03-18] MEDS: BUPIVACAINE 0.25% (PF) VIAL 30 ML INJ (08:56)
[2024-03-18] MEDS: BUPIVACAINE LIPOSOME 266 MG/20 ML VIAL INJ (08:56)
[2024-03-18] MEDS: TRANEXAMIC ACID 1,000 MG in SODIUM CHLORIDE 0.9% 100 ML 200 MG IV ×2 (09:03→10:20)
[2024-03-18] MEDS: LACTATED RINGERS 1,000 ML 42 ML IV (09:37)
--- NOTE | 2024-03-18 09:42 | DI.RAD.S_ITS ---
PROCEDURE: XR PELVIS 1-2V INDICATIONS: intra op TECHNIQUE: Intra-operative view of the pelvis and hip acquired. COMPARISON: None. FINDINGS: Bones: Intraoperative devices prior to placement of arthroplasty prostheses are in expected positions. No fractures or suspicious bony lesions. Soft tissues: Overlying surgical retractors are present, along with other intraoperative changes. IMPRESSION: Expected postsurgical changes without acute osseous findings. Dictated by: Oswaldo Martinez M.D. on 03/18/2024 at 9:16 Approved by: Oswaldo Martinez M.D. on 03/18/2024 at 9:18
--- NOTE | 2024-03-18 11:37 | PC.NURSE ---
Pt returned from PACU at 1120, A&Ox4, VSS on 2L NC, no c/o pain at this time. Aquacel dressing to L hip with small spot of drainage distally, otherwise c/d/i. Pedal pulses palpated, pt able to wiggle toes. Pt and family at bedside reoriented to room and call light.
[2024-03-18] MEDS: LACTATED RINGERS 1,000 ML 100 ML IV ×2 (12:08→16:19)
[2024-03-18] MEDS: ACETAMINOPHEN 325 MG TABLET 650 MG PO ×3 (12:09→23:42)
--- NOTE | 2024-03-18 12:29 | PT-IP ANOTE ---
Pt just arriving to floor after surgery for fractured hip. Will assess tomorrow.
[2024-03-18] MEDS: DOCUSATE 100 MG CAPSULE PO (20:07)
[2024-03-18] MEDS: IBUPROFEN 600 MG TABLET PO (20:48)
[2024-03-18] MEDS: GABAPENTIN 300 MG CAPSULE PO (23:42)
[2024-03-19] MEDS: LACTATED RINGERS 1,000 ML 100 ML IV ×2 (02:08→09:17)
[2024-03-19 04:00] VITALS: BP 108/61; PULSE 86; RESP 16; TEMP 36.8; O2SAT 93
[2024-03-19 05:04] LABS: Hematocrit 29.7 % (36-46); Hemoglobin 10.3 g/dL (12.0-16.0)
[2024-03-19] MEDS: cefTRIAXone 1,000 MG in SODIUM CHLORIDE 0.9% 100 ML 200 MG IV (05:20)
[2024-03-19] MEDS: ACETAMINOPHEN 325 MG TABLET 650 MG PO ×2 (05:24→14:50)
--- NOTE | 2024-03-19 05:42 | PC.NURSE ---
Galloway removed @ 0530. Pain controlled by tylenol & ibuprofen. CMS intact. Ambulated from chair to bed w/ 1 PA & FWW, tolerated well.
--- NOTE | 2024-03-19 07:31 | PM.PN.1 ---
Subjective Subjective Interval history: Summary: She was admitted with a ground level fall and hip fracture. She was status post ORIF on 03/18. She was doing well. Subjective: She was feeling generally very good today with regards to pain. She did become lightheaded and had a drop in blood pressure went up with PT. Exam Vital Signs (past 8 hours): - 03/19/24 04:00 Temperature 98.2 F Pulse Rate 86 Respiratory Rate 16 Blood Pressure 108/61 Pulse Oximetry 93 Oxygen Flow Rate 0 Oxygen Delivery Method Room Air Oxygen Flow Rate 0 Narrative Exam Narrative: NAD, alert and oriented. Fluent speech. Lungs are clear, normal rate and effort. Heart is regular, no murmur gallop or rub. Abdomen is soft, non distended. Extremities are free of edema. Objective Labs 03/19/24 04:53 03/17/24 05:34 Labs: Laboratory Results - last 24 hr 03/19/24 04:53 Hgb 10.3 L Hct 29.7 L PFSH Social History household members: spouse Smoking Status: Never smoker Assessment & Plan Assessment & Plan narrative: 1. Left hip fracture secondary to ground level fall. Present on admission and active. S/P ORIF 03/18. 2. UTI (pseudomonas on culture, sens to Cipro). Present on admission and active. 3. MS. Present on admission and active. -Being followed by [facility] neurology group as outpatient. No sign of MS flare. 4. Migraine headache, new and improved. PLAN: -ASA BID -PT and OT evals for discharge planning. -Pain control. -continue Cipro. -fluid bolus for low blood pressure. CHANEL: 03/20, home vs. SNF. Time-Based Coding :: [TOTAL MINUTES] spent with patient and on the chart (including review of chart, obtaining history, exam, reviewing outside data, placing orders, documenting exam and treatment plan, and counseling patient) on [DATE].
--- NOTE | 2024-03-19 07:48 | P.PN_ITS ---
Subjective Subjective Interval history: Monika is a pleasant 24-year-old female who is postop day#1 s/p left hip hemiarthroplasty for a left displaced femoral neck fracture by Dr. Ruiz. This morning patient states she is doing well, she is having minimal pain and overall she reports she feels better than before surgery. She lives at home w/ who is willing and able to aid in her post-op care. She plans to leave to [place] for the winter with her in the next day or so, she does have established care with an orthopedic practice in [place] whom she plans to follow-up with after this surgery. Has not been up to work w/ PT yet but was able to get up and sit in her bedside chair w/o any significant pain or mobility issue. Denies fever, chills, chest pain, SOB, nausea, vomiting. Operative Date/Time/Diagnoses Date of procedure: 03/18/24 Time of procedure: 08:15 Pre-op diagnosis: Left femoral neck fracture displaced Multiple sclerosis Osteoporotic hip fracture Post-op diagnosis: same Procedure & Clinicians Procedure: Left hip hemiarthroplasty for femoral neck fracture CPT code 42453 Same procedure as scheduled: Yes Indications: Patient is a 74-year-old female with left displaced femoral neck fracture. She has MS baseline left side is weaker we will often use a walker for ambulation but otherwise fairly healthy and was getting ready to have a knee replacement in the next year with another orthopedic surgeon. She states she fell directly onto her left hip. No loss of consciousness no other injuries. She was indicated for cemented left hip hemiarthroplasty to avoid the morbidity and mortality associated with prolonged immobilization. The risks and benefits of the procedure have been discussed with the patient and given the opportunity to ask questions. The risks of surgery include but are not limited to infection, fracture, persistence of pain, damage to nerves and blood vessels, posttraumatic arthritis, DVT, PE, cardiopulmonary complications and . The patient expressed a thorough understanding of the risks and benefits of surgery and has elected to proceed. Consent was signed. Surgeon: Na Ruiz Fire Extinguisher Sprinkler Inspector: Cruz Damian Anesthesia Type: General and Local Exam Vital Signs (past 8 hours): - 03/19/24 04:00 Temperature 98.2 F Pulse Rate 86 Respiratory Rate 16 Blood Pressure 108/61 Pulse Oximetry 93 Oxygen Flow Rate 0 Oxygen Delivery Method Room Air Oxygen Flow Rate 0 Narrative Exam Narrative: Patient lying comfortably in bed during our interview today. No acute distress. AOx3. Grossly normal alignment of the LLE. 5/5 strength with DF, PF, EHL bilaterally. Gross sensation intact throughout bilateral lower extremities. Calves soft and non-tender bilaterally. SCDs are on and functioning. Brisk capillary refill, pulses intact. Post-surgical Aquacel dressing clean, dry and intact over the left hip with scant bloody drainage at the distal incision site. Objective Labs 03/19/24 04:53 03/17/24 05:34 Labs: Laboratory Results - last 24 hr 03/19/24 04:53 Hgb 10.3 L Hct 29.7 L PFSH Social History household members: spouse Smoking Status: Never smoker Assessment & Plan Post-op Postoperative Procedures: Procedures Operation Date: 03/18/24 08:00 Actual Procedure Side Surgeon p Hip Hemiarthroplasty Left Na Ruiz MD Postoperative plan narrative: 1) Discharge disposition per Medicine 2) Continue multimodal pain management with ice to the hip for additional pain control. 3) Lovenox 40 mg subQ daily x4 weeks for DVT prophylaxis 4) Work w/ physical therapy to improve mobility. Weightbearing as tolerated, maintain posterior hip precautions. 5) Keep dressing intact, clean, dry until 2 week postop appointment. No soaking the incision site in pools or tubs. No topical ointments or creams to the incision site. 6) Follow up at [facility] or another orthopedic clinic in [place] in 2 weeks for a postop appointment, wound check, staple removal and post-op X-Rays. All patient's questions were answered, she demonstrates understanding and is in agreement with the plan. Call our office if any questions or concerns arise.
[2024-03-19 08:00] VITALS: BP 117/62; PULSE 85; RESP 14; TEMP 36.8; O2SAT 94
[2024-03-19] MEDS: ENOXAPARIN 40 MG/0.4 ML SYRINGE SUBCUT (08:42)
[2024-03-19] MEDS: IBUPROFEN 600 MG TABLET PO ×2 (08:42→17:18)
[2024-03-19] MEDS: buPROPion XL 150 MG TAB PO (08:42)
[2024-03-19] MEDS: CIPROFLOXACIN 250 MG TABLET 500 MG PO ×2 (08:42→20:24)
[2024-03-19] MEDS: GABAPENTIN 300 MG CAPSULE PO (08:42)
[2024-03-19] MEDS: DOCUSATE 100 MG CAPSULE PO ×2 (08:42→20:25)
--- NOTE | 2024-03-19 09:15 | OT.IP.EVAL ---
Current Diagnoses Fracture of unspecified part of neck of left femur, initial encounter for closed fracture (03/17/24) Surgery Performed Operation Date: 03/18/24 08:00 Actual Procedures p Hip Hemiarthroplasty(Left) - Na Ruiz MD Occupational Therapy Inpatient Evaluation/Re-Eval M1 PT/OT-IP Prior Functional Status Start: 03/19/24 09:17 Freq: NEEDED Status: Active Protocol: Document 03/19/24 09:17 CGR (Rec: 03/19/24 09:34 CGR [id number]) Medical Review Prior Functional Status Medical History Reviewed Yes Communication Pt is an effective verbal communicator. Mobility and Gait Pt is IND or MOD I with use of SPC for longer distances as needed. Activities of Daily Living and IADL's Pt was IND in all ADLs and IADLs. 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 Prior Functional Level (Other details) Pt and her spouse live in [place] and return here for the . They travel in a travel trailer that is currently in the shop in [place] for returning to [place] in about a week. Pt plans to discharge to her sons home in [place]. Information below is for the sons house. Social History Household Members spouse Living Arrangements House Number of Floors (Floors) One Floor Number of Stairs To Enter/Railing? 1 step, no railing. Home Environment Standard Height Toilet,Tub/ Shower Home Equipment Straight Cane Employment Status Retired Additional Social History Comment Discussed with patient that there might be organizations in the [facility] that would loan equipment. Pt was left with a list of equipment that would be beneficial for her to have at discharge. M2 OT-IP Current Condition Start: 03/19/24 09:17 Freq: Status: Active Protocol: Document 03/19/24 09:17 CGR (Rec: 03/19/24 09:34 CGR [id number]) Occupational Therapy Current Condition Current Condition Evaluation Date 03/19/24 Treatment Diagnosis fall with L hip fx, s/p hemiarthroplasty, posterior WBAT Diagnosis Onset Date 03/17/24 Post Operative Precautions Posterior Hip Precautions No Hip Flexion > 90 degrees,No Hip Internal Rotation,No Hip Adduction Weight Bearing Status Weight Bearing Status Weight Bear as Tolerated M3 OT- IP Subjective and Pain Start: 03/19/24 09:17 Freq: Status: Active Protocol: Document 03/19/24 09:17 CGR (Rec: 03/19/24 09:34 CGR [id number]) OT- Subjective Occupational Therapy Visit Type Type Initial Evaluation Visit Start Time 08:33 Visit Stop Time 09:15 OT Pain Assessment Pain When Pain Assessed At Rest Pain Present Pain Present Pain Reported Location Left Hip Intensity 1 Scale Used Numeric (0 - 10) Pain Behaviors Facial Grimacing,Guarding Management Techniques Distraction,Modification of Treatment,Re-positioning M4 OT- IP ADL's Start: 03/19/24 09:17 Freq: Status: Active Protocol: Document 03/19/24 09:17 CGR (Rec: 03/19/24 09:34 CGR [id number]) OT [id number] Comments OT Self-Feeding Comments pt had just completed breakfast prior to OT entering room. OT ADL-Grooming Comments OT Grooming Comments not performed OT ADL-Oral Care General Eval Oral Care Ability Standby Assistance Areas of Assistance Brushing Teeth Comments Oral Care Comments sitting up in bed. OT ADL-Dressing General Eval Lower Body Dressing Ability Total Assistance Areas Needing Assistance Socks Comments OT Dressing Comments supine in bed OT ADL-Toileting Comments OT Toileting Comments not performed OT ADL-Bathing Comments OT Bathing Comments not performed M5 OT- IP IADL's Start: 03/19/24 09:17 Freq: Status: Active Protocol: Document 03/19/24 09:17 CGR (Rec: 03/19/24 09:34 CGR [id number]) OT-Instrumental Activities of Daily Living Deficits IADL Deficits Identified No Deficits Home Safety Awareness Awareness of Need for Assistance at Home Good Awareness Ability to Problem Solve Emergency Able to Problem Solve Situations Medication Management Medication Management No Deficits Identified Money Management Money Management No Deficits Identified Meal Preparation Meal Preparation No Deficits Identified Corn Cutter Corn Cutter No Deficits Identified Driving Driving Comments 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 OT- IP Functional Cognition Start: 03/19/24 09:17 Freq: Status: Active Protocol: Document 03/19/24 09:17 CGR (Rec: 03/19/24 09:34 CGR [id number]) Cognitive Factors Limiting Selfcare Function Cognitive Ability Level of Alertness Alert Patient Orientation Name,Age,Birthday,Month,Date, Year,Day of Week,Place, Situation Attention Span Ability Capable of Focused Attention, Capable of Sustained Attention Ability to Follow Commands Able to Follow Multi-Step Commands OT- Vision and Hearing OT- Hearing Assessment OT- Hearing Assessment WFL OT- Vision Assessment Visual Acuity Glasses All The Time Visual Attentiveness WFL Occular Pursuits WFL Visual Convergence WFL Vision Assessment Comments Pt states that she gets dizzy when she moves her head upwards but this is her baseline. M7 OT- IP Mobility and Balance Start: 03/19/24 09:17 Freq: Status: Active Protocol: Document 03/19/24 09:17 CGR (Rec: 03/19/24 09:34 CGR [id number]) OT- Bed Mobility Assessment Supine to Sit Supine to Sit Assist Minimal Assistance Sit to Supine Sit to Supine Assist Maximum Assistance,2 Person Assistance Scooting Scooting to Edge of Bed Minimal Assistance,1 Person Assistance OT-Transfer Assessment Comments Mobility Comments Pt with dizziness upon sitting EOB that continued. BP 91/48 then 90/42 sitting. Pt reqesting to get back to bed as dizziness appeared to get worse. Nursing assisted with max x 2 sit to supine d/t dizziness. Pt was position in bed to support the LLE in good positioning and left supported in bed with call button within reach. Nursing aware of BPs. OT- Gait Assessment Comments Gait Ability Comments not performed OT- Balance Assessment Sitting Balance and Reactions Static Sitting Balance Ability Good Dynamic Sitting Balance Ability Good M8 OT- IP Objective Assessments Start: 03/19/24 09:17 Freq: Status: Active Protocol: Document 03/19/24 09:17 CGR (Rec: 03/19/24 09:34 CGR [id number]) OT Gross Range of Motion Upper Extremity Range of Motion Assessment Within Functional Limits OT Strength Upper Extremity Strength Assessment Within Functional Limits Comments Strength Comments grossly 4+ to 5-/5 OT- Coordination Assessment Upper Extremity Finger to Nose Test Within Functional Limits Finger Tapping Test Within Functional Limits OT-Muscle Tone Assessment Muscle Tone WNL Yes OT Sensation Assessment Edema Edema Absent M9 OT- IP Assessment and Plan Start: 03/19/24 09:17 Freq: Status: Active Protocol: Document 03/19/24 09:17 CGR (Rec: 03/19/24 09:34 CGR [id number]) OT Summary Assessment and Plan Potential Rehabilitation Potential Good Analytic Complexity at Evaluation Moderate Summary OT Impairments Pain,Balance,Functional Mobility,Dressing,Toileting, Bathing,Toilet Transfers, Shower Transfers,Activity Tolerance Progress Towards Goals Slow Progress due to Activity Tolerance Assessment Summary Pt presents as a moderate complexity evaluation s/p fall and L hemiarthroplasty. Pt is moving well but with dizziness and low BP upon sitting up so session was limited to sitting EOB then returning to supine. Pt will continue to benefit from OT services and is hopeful for discharge to [facility]. Pt was left with a list of DME that would be beneficial for pt to have at discharge and pt 's spouse will start looking into it. Goals Grooming Goal Independent Dressing Goal Independent Toileting Goal Independent Bathing Goal Independent Toilet Transfer Goal Independent Shower Transfer Goal Independent Days to Meet Goals 5 Frequency of Treatment Other frequency 5x a week Treatment Plan OT Treatment Plan ADL Training,Functional Mobility,Patient/Family Education,Discharge Planning Other Treatment Recommendations and Next OOB as able given BP. Pt is Treatment Focus likely to discharge quickly once BP is stable. Discharge Recommendations OT Discharge Recommendations Home with 24/7 Assist Available Home Equipment Needs 2ww, BSC or toilet heighter, tub transfer bench Transportation Needs at Discharge Private Vehicle
[2024-03-19] MEDS: SODIUM CHLORIDE 0.9% 1,000 ML 1000 ML IV (10:24)
--- NOTE | 2024-03-19 13:35 | PT.IIE ---
Current Diagnoses Fracture of unspecified part of neck of left femur, initial encounter for closed fracture (03/17/24) Surgery Performed Operation Date: 03/18/24 08:00 Actual Procedures p Hip Hemiarthroplasty(Left) - Na Ruiz MD Physical Therapy Inpatient Evaluation/Re-Eval M1 PT/OT-IP Prior Functional Status Start: 03/19/24 09:17 Freq: NEEDED Status: Active Protocol: Document 03/19/24 12:57 MB (Rec: 03/19/24 13:35 MB [id number]) Medical Review Prior Functional Status Medical History Reviewed Yes Communication Pt is an effective verbal communicator. Mobility and Gait Pt is IND or MOD I with use of SPC for longer distances as needed. Activities of Daily Living and IADL's Pt was IND in all ADLs and IADLs. 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 Prior Functional Level (Other details) Pt and her spouse live in [place] and return here for the [place]. They travel in a travel trailer that is currently in the shop in [employer] [place] for returning to [place] in about a week. Pt plans to discharge to her sons home in [place]. Information below is for the sons house. Social History Household Members spouse Living Arrangements House Number of Floors (Floors) One Floor Number of Stairs To Enter/Railing? 1 step, no railing. Home Environment Standard Height Toilet,Tub/ Shower Home Equipment Straight Cane Employment Status Retired Additional Social History Comment Discussed with patient that there might be organizations in the [facility] that would loan equipment. Pt was left with a list of equipment that would be beneficial for her to have at discharge. M2 PT-IP Current Condition Start: 03/18/24 12:29 Freq: NEEDED Status: Active Protocol: Document 03/19/24 12:57 MB (Rec: 03/19/24 13:35 MB [id number]) Physical Therapy Current Condition Current Condition Evaluation Date 03/19/24 Treatment Diagnosis Left hip fracture s/p posterior JOCELYNE M3 PT-IP Subjective Start: 03/18/24 12:29 Freq: NEEDED Status: Active Protocol: Document 03/19/24 12:57 MB (Rec: 03/19/24 13:35 MB [id number]) Subjective Physical Therapy Visit Type Type Initial Evaluation Visit Start Time 12:57 Visit Stop Time 13:24 Number of PHARMACY CLERK Visits 0 Physical Therapy Visit Comments Patient Comments Pt states she hopes they can get on the road to [place] next week. Therapy Pain Assessment Pain When Pain Assessed At Rest Pain Present Pain Present Pain Reported Location Left Hip Intensity 2 Scale Used Numeric (0 - 10) M4 PT-IP Mobility and Gait Start: 03/18/24 12:29 Freq: NEEDED Status: Active Protocol: Document 03/19/24 12:57 MB (Rec: 03/19/24 13:35 MB [id number]) PT-Bed Mobility Assessment Supine to Sit Supine to Sit Minimal Assistance,1 Person Assistance,Head of Bed Elevated,Bedrails Sit to Supine Sit to Supine Maximum Assistance,1 Person Assistance,Head of Bed Elevated,Bedrails Scooting Scooting to Edge of Bed Contact Guard Assistance Scooting Up and Down in Bed Contact Guard Assistance PT-Transfer Assessment Sit to and From Stand Sit to and from Stand Minimal Assistance Equipment Transfer Assistive Device Gait Belt,Front Wheeled Walker Orthotic/Prosthetic Devices or Brace: No Transfers Transfer Destination Bed Transfer Technique Side step to the left to HOB Transfer Ability Level of Assist Minimal Assistance Comments Mobility Comments PT loops gait belt for pt to use to help to move left leg and she does not demonstrate ability to move her left leg with her left leg muscles without assistance today. Pt has some ataxia with movement and is rigid in trunk and neck and does not lift her head d/ t reports of fear of dizziness if she looks up with mobility . Pt con't with severe orthostasis with BP and HR in LUE: supine 134/67, 83; standing 116/64, 103; standing 1' 107/55, 98; standing 2' 105/54, 88; standing 3' 88/54, 94; after a few left side steps 99/57, 98. Gait Assessment Gait Gait Assistance Required: Minimum Assistance Distance (Feet) 1 Able to Maintain Weight Bearing Status Yes During Gait Assistive Devices Assistive Device Gait Belt,Front Wheeled Walker Orthotic/Prosthetic Devices or Brace: No Gait Deviations General Gait Pattern Ataxic,Decreased Stride Length ,Decreased Feet Clearance, Flexed Trunk,Step-to Gait,Wide Based Gait Factors Limiting Gait Function Factors Limiting Gait Function Decreased Activity Tolerance, Decreased Strength, Incoordination,Limited Range of Motion,Pain,Poor Balance, Poor Safety Awareness Comments Gait Comments Pt's posture is rigid and her movement is somewhat ataxic, reports of MS affecting left trigeminal nerve and left side as far as strength and sensation, more affected LLE PT-Balance Assessment Sitting Balance and Reactions Static Sitting Balance Ability Fair Dynamic Sitting Balance Ability Poor Standing Balance and Reactions Static Standing Balance Ability Poor Dynamic Standing Balance Ability Poor Device Used RW M5 PT-IP Objective Assessments Start: 03/18/24 12:29 Freq: NEEDED Status: Active Protocol: Document 03/19/24 12:57 MB (Rec: 03/19/24 13:35 MB [id number]) Orientation Orientation/Cognition Level of Alertness Alert Language Function Ability No Deficits Noted Safety Awareness Decreased Safety Awareness Memory Description No Deficits Noted Gross Range of Motion Upper Extremity ROM Impairments Defer to OT Lower Extremity ROM Assessment Left Impaired Impairments Guarding left LE and does not range hip much with cues for moving leg out to side and HS Strength Lower Extremity Strength Assessment Left Impaired Comments Strength Comments Left ankle DF and great toe extension are 5/5 Coordination Assessment Gross Coordination Gross Coordination Impaired Sensation Assessment Sensation Gross Sensation Left LE Impaired Muscle Tone Muscle Tone WNL Yes M6 PT-IP Treatment Start: 03/18/24 12:29 Freq: NEEDED Status: Active Protocol: Document 03/19/24 12:57 MB (Rec: 03/19/24 13:35 MB [id number]) Physical Therapy Treatment Exercises Exercises Ankle Pumps,Gluteal Sets,Quad Sets,Heel Slides Education Education Provided Precautions,Weight Bearing Status,Post-Op Packet,Safety M7 PT-IP Assessment and Plan Start: 03/18/24 12:29 Freq: NEEDED Status: Active Protocol: Document 03/19/24 12:57 MB (Rec: 03/19/24 13:35 MB [id number]) PT Summary Assessment and Plan Potential Rehabilitation Potential Good Status of Condition at Evaluation Evolving Summary Impairments Pain,ROM,Strength,Balance, Coordination,Sensation,Bed Mobility,Transfers,Gait, Activity Tolerance Progress Towards Goals Slow Progress - Other Assessment Summary Pt is a 74 y/o female presenting with ataxic-type movement and guarding of LLE after hip fracture and surgery . Pt also avoids lifting her head with standing up d/t fear of dizziness. Pt reports baseline sensory and strength challenges left side from MS. Pt presents with orthostatic hypotension this afternoon which is a barrier to mobility . Pt states she and have been living in their RV in [place] and plan to drive back to their home in [place] next week. Unsure how safe this plan is s/p fall, fracture and hip surgery. Goals Bed Mobility Goal Independent Transfer Goal Independent,Front Wheeled Walker Gait Goal Independent,Front Wheel Walker Gait Distance 75 Other Goals Pt will ascend and descend 3 steps with left rail ascend and no more than CGA to allow safe RV entrance. Days to Meet Goals 5 Frequency of Treatment Other frequency 1-2x/day Treatment Plan Physical Therapy Treatment Plan Bed Mobility Training,Transfer Training,Gait Training, Therapeutic Exercise,Balance Retraining,Post Op Education, Discharge Planning,Hot or Cold Pack,Neuromuscular Re-ed, Coordination Retraining,Manual Therapy Precautions Posterior Hip Precautions No Hip Flexion > 90 degrees,No Hip Internal Rotation,No Hip Adduction Weight Bearing Status Weight Bearing Status Weight Bear as Tolerated Recommendations To Nursing Amount of Assist Needed 2 Person Assist Discharge Recommendations PT Discharge Recommendations Home vs SNF Equipment Needed for Home Before RW Discharge Transportation Needs at Discharge Private Vehicle,Wheelchair/ Cabulance
[2024-03-19 14:14] LABS: Hematocrit 29.9 % (36-46); Hemoglobin 10.4 g/dL (12.0-16.0)
--- NOTE | 2024-03-19 14:17 | CM.DPC ---
DCP Cont: Per MD, pt making progress post surgery but orthostatic and to have bolus today and not yet medically stable to discharge. Per PT/OT, pt with bp issues and dizziness which limited her ability to ambulate much today and hx of MS impacts her mobility. Pending progress Home vs SNF. Will need to do stairs and CG training. Pt still hopeful she will improve and discharge to her son and [facility] house in [place] at discharge before return to the with her spouse in a week or two as they had plans to drive back to their home in [place]. Plan: SW to follow closely for further PT/OT to confirm safe d/c to son's home at discharge in [place] and any further identified discharge planning needs. NOEMI Valdes
--- NOTE | 2024-03-19 14:27 | PC.NURSE ---
Patients blood pressure decreased x2 when up with physical therapy, 90/40s and 88/40s. She received a NS bolus earlier and is continuing with her LR at 100cc/hr. [place] [facility] [place] She was given tylenol and visiting with her . She did not have any syncopal episodes when up.
[2024-03-19 16:39] VITALS: BP 120/67; PULSE 88; RESP 13; TEMP 37.3; O2SAT 94
[2024-03-19] MEDS: OXYCODONE IR 5 MG TABLET PO (20:24)
[2024-03-19 20:53] VITALS: BP 139/80; PULSE 94; RESP 17; TEMP 37.2; O2SAT 96
--- NOTE | 2024-03-20 07:30 | PM.PN.1 ---
Subjective Subjective Interval history: Summary: Admitted with a ground level fall and hip fracture. S: Still lightheaded with scan. Still 5/10 hip pain. She feels that she likely will be requiring some rehab time at this point given her slow progress. She was somewhat disappointed she was really hoping to go home directly. Exam Vital Signs (past 8 hours): Oxygen Delivery Method Room Air Oxygen Flow Rate 0 Narrative Exam Narrative: NAD, alert and oriented. Fluent speech. Lungs are clear, normal rate and effort. Heart is regular, no murmur gallop or rub. Abdomen is soft, non distended. Extremities are free of edema. Tip is little tender around the wound, there is minimal bruising. Objective Labs 03/19/24 13:28 03/17/24 05:34 Labs: Laboratory Results - last 24 hr 03/19/24 13:28 Hgb 10.4 L Hct 29.9 L PFSH Social History household members: spouse Smoking Status: Never smoker Assessment & Plan Assessment & Plan narrative: 1. Left hip fracture secondary to ground level fall. Present on admission and active. S/P ORIF 03/18. 2. UTI (pseudomonas on culture, sens to Cipro). Present on admission and active. 3. MS. Present on admission and active. -Being followed by [facility] neurolog[facility] as outpatient. No sign of MS flare. 4. Migraine headache, new and improved. PLAN: -ASA BID for DVT prophylaxis. -PT and OT evals for discharge planning. -Pain control. -continue Cipro. -SNF planning CHANEL: 03/21, probable SNF. Time-Based Coding :: [TOTAL MINUTES] spent with patient and on the chart (including review of chart, obtaining history, exam, reviewing outside data, placing orders, documenting exam and treatment plan, and counseling patient) on [DATE].
[2024-03-20 08:00] VITALS: BP 134/73; PULSE 90; RESP 13; TEMP 37.1; O2SAT 94
[2024-03-20] MEDS: ENOXAPARIN 40 MG/0.4 ML SYRINGE SUBCUT (08:20)
[2024-03-20] MEDS: ACETAMINOPHEN 325 MG TABLET 650 MG PO ×2 (08:20→14:58)
[2024-03-20] MEDS: buPROPion XL 150 MG TAB PO (08:21)
[2024-03-20] MEDS: DOCUSATE 100 MG CAPSULE PO ×2 (08:21→20:47)
[2024-03-20] MEDS: CIPROFLOXACIN 250 MG TABLET 500 MG PO ×2 (09:19→20:47)
--- NOTE | 2024-03-20 10:28 | PM.PNPO.1 ---
Subjective Subjective Date Patient Seen: 03/20/24 Time Patient Seen: 10:28 Interval history: Pain has been mild. Denies fever/chills. No nausea/vomiting. Patient has been lightheaded when standing which has made it difficult to work with physical therapy. Exam Vital Signs (past 8 hours): - 03/20/24 08:00 Temperature 98.8 F Pulse Rate 90 Respiratory Rate 13 Blood Pressure 134/73 Pulse Oximetry 94 Oxygen Delivery Method Room Air Oxygen Flow Rate 0 Narrative Exam Narrative: 74-year-old female resting comfortably in bedside chair no apparent distress. Left hip dressing is clean, dry and intact. Motor functions intact bilateral lower extremities. Sensation grossly intact to light touch bilateral lower extremities. Const General: cooperative and comfortable Nutritional Appearance: average body habitus Orientation: alert Resp Effort & Inspection: normal respiratory effort and able to speak in complete sentences Objective Labs 03/19/24 13:28 03/17/24 05:34 Labs: Laboratory Results - last 24 hr 03/19/24 13:28 Hgb 10.4 L Hct 29.9 L PFSH Social History household members: spouse Smoking Status: Never smoker Assessment & Plan Post-op Postoperative Procedures: Procedures Operation Date: 03/18/24 08:00 Actual Procedure Side Surgeon p Hip Hemiarthroplasty Left Na Ruiz MD Postoperative day: 2 Postoperative status narrative: Stable Postoperative plan narrative: Weight-bearing as tolerated, posterior hip precautions x6 weeks. Lovenox 40 mg subQ daily x4 weeks for DVT prophylaxis Follow up outpatient orthopedic clinic in 2 weeks for staple removal and wound check.
--- NOTE | 2024-03-20 10:53 | OT.IP.TRT ---
Current Diagnoses Fracture of unspecified part of neck of left femur, initial encounter for closed fracture (03/17/24) Surgery Performed Operation Date: 03/18/24 08:00 Actual Procedures p Hip Hemiarthroplasty(Left) - Na Ruiz MD Occupational Therapy Treatment Note M2 OT-IP Current Condition Start: 03/19/24 09:17 Freq: Status: Active Protocol: Document 03/19/24 09:17 CGR (Rec: 03/19/24 09:34 CGR [id number]) Occupational Therapy Current Condition Current Condition Evaluation Date 03/19/24 Treatment Diagnosis fall with L hip fx, s/p hemiarthroplasty, posterior WBAT Diagnosis Onset Date 03/17/24 Post Operative Precautions Posterior Hip Precautions No Hip Flexion > 90 degrees,No Hip Internal Rotation,No Hip Adduction Weight Bearing Status Weight Bearing Status Weight Bear as Tolerated M3 OT- IP Subjective and Pain Start: 03/19/24 09:17 Freq: Status: Active Protocol: Document 03/20/24 10:54 [facility] (Rec: 03/20/24 11:07 [facility] [id number]) OT- Subjective Occupational Therapy Visit Type Type Treatment Note Visit Start Time 10:30 Visit Stop Time 10:53 Occupational Therapy Visit Comments Patient Comments Pt agreed to get up and wanted to take a shower. Patient/Caregiver Goals TO go home, but now open to skilled rehab. OT Pain Assessment Pain When Pain Assessed At Rest Pain Present Pain Present Pain Reported Location Left Hip Intensity 2 Scale Used Numeric (0 - 10) M4 OT- IP ADL's Start: 03/19/24 09:17 Freq: Status: Active Protocol: Document 03/20/24 10:54 [facility] (Rec: 03/20/24 11:07 [facility] [id number]) OT ADL-Grooming General Evaluation Grooming Ability Standby Assistance Areas Needing Assistance Retrieving/Set-up of Grooming Items Comments OT Grooming Comments Able to while seated. OT ADL-Oral Care General Eval Oral Care Ability Independent OT ADL-Toileting Comments OT Toileting Comments Pt states just did earlier and now tired to get up. OT ADL-Bathing Comments OT Bathing Comments Pt will need assist and equipment for showering at this time. Pt too dizzy to be able to get to the shower at this time. M5 OT- IP IADL's Start: 03/19/24 09:17 Freq: Status: Active Protocol: Document 03/19/24 09:17 CGR (Rec: 03/19/24 09:34 CGR [id number]) OT-Instrumental Activities of Daily Living Deficits IADL Deficits Identified No Deficits Home Safety Awareness Awareness of Need for Assistance at Home Good Awareness Ability to Problem Solve Emergency Able to Problem Solve Situations Medication Management Medication Management No Deficits Identified Money Management Money Management No Deficits Identified Meal Preparation Meal Preparation No Deficits Identified Systems Applications Programming Lead Systems Applications Programming Lead No Deficits Identified 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 OT- IP Functional Cognition Start: 03/19/24 09:17 Freq: Status: Active Protocol: Document 03/20/24 10:54 [facility] (Rec: 03/20/24 11:07 [facility] [id number]) Cognitive Factors Limiting Selfcare Function Cognitive Ability Level of Alertness Alert Patient Orientation Name,Age,Birthday,Month,Date, Year,Day of Week,Place, Situation Attention Span Ability Capable of Focused Attention, Capable of Sustained Attention Ability to Follow Commands Able to Follow One Step Commands Cognitive Comments Cognitive Assessment Comments Pt able to state 2/3 hip precautions at this time. M7 OT- IP Mobility and Balance Start: 03/19/24 09:17 Freq: Status: Active Protocol: Document 03/20/24 10:54 [facility] (Rec: 03/20/24 11:07 [facility] [id number]) OT-Transfer Assessment Sit to and From Stand Sit to and from Stand Moderate Assistance,Maximum Assistance Comments Mobility Comments Pt BP dropped when stand up from 118/63 to 93/52. MOD/MAX x1 to stand and heavy use of her arms to walk her hands up to the edge of the chair and boost to stand. Pt states feeling dizzy and not up for a shower now. OT- Balance Assessment Sitting Balance and Reactions Static Sitting Balance Ability Good Dynamic Sitting Balance Ability Fair Standing Balance and Reactions Static Standing Balance Ability Poor M8 OT- IP Objective Assessments Start: 03/19/24 09:17 Freq: Status: Active Protocol: Document 03/19/24 09:17 CGR (Rec: 03/19/24 09:34 CGR [id number]) OT Gross Range of Motion Upper Extremity Range of Motion Assessment Within Functional Limits OT Strength Upper Extremity Strength Assessment Within Functional Limits Comments Strength Comments grossly 4+ to 5-/5 OT- Coordination Assessment Upper Extremity Finger to Nose Test Within Functional Limits Finger Tapping Test Within Functional Limits OT-Muscle Tone Assessment Muscle Tone WNL Yes OT Sensation Assessment Edema Edema Absent M9 OT- IP Assessment and Plan Start: 03/19/24 09:17 Freq: Status: Active Protocol: Document 03/20/24 10:54 [facility] (Rec: 03/20/24 11:07 [facility] [id number]) OT Summary Assessment and Plan Potential Rehabilitation Potential Good Analytic Complexity at Evaluation Moderate Summary OT Impairments Pain,Balance,Functional Mobility,Dressing,Toileting, Bathing,Toilet Transfers, Shower Transfers,Activity Tolerance Progress Towards Goals Slow Progress due to Pain,Slow Progress due to Medical Issues,Slow Progress due to Activity Tolerance Assessment Summary Pt still dizzy and needing lot of assist to stand and still having difficulty to more her LLE at this time. Pt would greatly benefit from skilled rehab prior to going home. Goals Grooming Goal Independent Dressing Goal Independent Toileting Goal Independent Bathing Goal Independent Toilet Transfer Goal Independent Shower Transfer Goal Independent Days to Meet Goals 15 Frequency of Treatment Other frequency 5x a week Treatment Plan OT Treatment Plan ADL Training,Functional Mobility,Patient/Family Education,Discharge Planning Discharge Recommendations OT Discharge Recommendations SNF Rehab Home Equipment Needs 2ww, BSC or toilet heighter, tub transfer bench Transportation Needs at Discharge Private Vehicle,Wheelchair/ Cabulance
--- NOTE | 2024-03-20 11:10 | PT.IPTN ---
Current Diagnoses Fracture of unspecified part of neck of left femur, initial encounter for closed fracture (03/17/24) Surgery Performed Operation Date: 03/18/24 08:00 Actual Procedures p Hip Hemiarthroplasty(Left) - Na Ruiz MD Physical Therapy Treatment Note M2 PT-IP Current Condition Start: 03/18/24 12:29 Freq: NEEDED Status: Active Protocol: Document 03/19/24 12:57 MB (Rec: 03/19/24 13:35 MB [id number]) Physical Therapy Current Condition Current Condition Evaluation Date 03/19/24 Treatment Diagnosis Left hip fracture s/p posterior JOCELYNE M3 PT-IP Subjective Start: 03/18/24 12:29 Freq: NEEDED Status: Active Protocol: Document 03/20/24 11:41 TS (Rec: 03/20/24 11:57 TS [id number]) Subjective Physical Therapy Visit Type Type Treatment Note Visit Start Time 11:10 Visit Stop Time 11:22 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 M4 PT-IP Mobility and Gait Start: 03/18/24 12:29 Freq: NEEDED Status: Active Protocol: Document 03/20/24 11:41 TS (Rec: 03/20/24 11:57 TS [id number]) PT-Transfer Assessment Sit to and From Stand Sit to and from Stand Moderate Assistance,1 Person Assistance Equipment Transfer Assistive Device Gait Belt,Front Wheeled Walker Orthotic/Prosthetic Devices or Brace: No Comments Mobility Comments BP in sitting 126/63. Pt recalls 2/3 hip precautions(no bending past 90D). STS with FWW modA from chair, pt demonstrates good carryover of STS technique. Pt took 3 steps with FWW before getting lightheaded and required to sit back in the chair. BP in sitting 108/61. Pt was left in chair, all needs met. Gait Assessment Gait Gait Assistance Required: Minimum Assistance Distance (Feet) 1 Able to Maintain Weight Bearing Status Yes During Gait Assistive Devices Assistive Device Gait Belt,Front Wheeled Walker Orthotic/Prosthetic Devices or Brace: No Gait Deviations General Gait Pattern Ataxic,Decreased Stride Length ,Decreased Feet Clearance, Flexed Trunk,Step-to Gait,Wide Based Gait Factors Limiting Gait Function Factors Limiting Gait Function Decreased Activity Tolerance, Decreased Strength, Incoordination,Limited Range of Motion,Pain,Poor Balance, Poor Safety Awareness Comments Gait Comments x3 steps PT-Balance Assessment Sitting Balance and Reactions Static Sitting Balance Ability Good Dynamic Sitting Balance Ability Fair Standing Balance and Reactions Static Standing Balance Ability Poor Dynamic Standing Balance Ability Poor Device Used FWW M5 PT-IP Objective Assessments Start: 03/18/24 12:29 Freq: NEEDED Status: Active Protocol: Document 03/19/24 12:57 MB (Rec: 03/19/24 13:35 MB [id number]) Orientation Orientation/Cognition Level of Alertness Alert Language Function Ability No Deficits Noted Safety Awareness Decreased Safety Awareness Memory Description No Deficits Noted Gross Range of Motion Upper Extremity ROM Impairments Defer to OT Lower Extremity ROM Assessment Left Impaired Impairments Guarding left LE and does not range hip much with cues for moving leg out to side and HS Strength Lower Extremity Strength Assessment Left Impaired Comments Strength Comments Left ankle DF and great toe extension are 5/5 Coordination Assessment Gross Coordination Gross Coordination Impaired Sensation Assessment Sensation Gross Sensation Left LE Impaired Muscle Tone Muscle Tone WNL Yes M6 PT-IP Treatment Start: 03/18/24 12:29 Freq: NEEDED Status: Active Protocol: Document 03/20/24 11:41 TS (Rec: 03/20/24 11:57 TS [id number]) Physical Therapy Treatment Education Education Provided Precautions,Weight Bearing Status,Post-Op Packet,Safety M7 PT-IP Assessment and Plan Start: 03/18/24 12:29 Freq: NEEDED Status: Active Protocol: Document 03/20/24 11:41 TS (Rec: 03/20/24 11:57 TS [id number]) PT Summary Assessment and Plan Potential Rehabilitation Potential Good Summary Impairments Pain,ROM,Strength,Balance, Coordination,Sensation,Bed Mobility,Transfers,Gait, Activity Tolerance Progress Towards Goals Slow Progress - Other Assessment Summary Monika continues to make slow progress with her mobility. She requires ModA for STS from the lower surface of the chair. She continues to be orthostatic and that remains her biggest barrier to progressing her mobility. PT is recommending Home 17/01 vs SNF. Goals Bed Mobility Goal Independent Transfer Goal Independent,Front Wheeled Walker Gait Goal Independent,Front Wheel Walker Gait Distance 75 Other Goals Pt will ascend and descend 3 steps with left rail ascend and no more than CGA to allow safe RV entrance. Days to Meet Goals 5 Frequency of Treatment Other frequency 1-2x/day Treatment Plan Physical Therapy Treatment Plan Bed Mobility Training,Transfer Training,Gait Training, Therapeutic Exercise,Balance Retraining,Post Op Education, Discharge Planning,Hot or Cold Pack,Neuromuscular Re-ed, Coordination Retraining,Manual Therapy Precautions Posterior Hip Precautions No Hip Flexion > 90 degrees,No Hip Internal Rotation,No Hip Adduction Weight Bearing Status Weight Bearing Status Weight Bear as Tolerated Recommendations To Nursing Amount of Assist Needed 2 Person Assist Discharge Recommendations PT Discharge Recommendations Home vs SNF Equipment Needed for Home Before RW Discharge Transportation Needs at Discharge Private Vehicle,Wheelchair/ Cabulance
--- NOTE | 2024-03-20 14:46 | CM.DPC ---
DCP Cont. Reviewed EMR and team rounds for status updates. Pt was orthostatic this am in working with therapies, she had wanted to d/c home, however, she is open to a short stay in SNF Rehab in order to further stabilize before they drive home, to [place]. [facility] is their preference. Sent referral to [facility], they can accept. Pending transpo availability, hopefully she can go on Tue, however, it may be . Monitoring closely, will call SV in the am to clarify plan.
[2024-03-20 16:00] VITALS: BP 142/72; PULSE 93; RESP 14; TEMP 37.2; O2SAT 96
[2024-03-20 21:05] VITALS: BP 146/88; PULSE 86; RESP 18; TEMP 36.4; O2SAT 99
[2024-03-21 00:31] VITALS: TEMP 37.7
[2024-03-21] MEDS: ACETAMINOPHEN 325 MG TABLET 650 MG PO ×4 (00:31→17:50)
[2024-03-21 01:20] VITALS: TEMP 37.3
[2024-03-21] MEDS: CIPROFLOXACIN 250 MG TABLET 500 MG PO ×2 (06:35→20:25)
--- NOTE | 2024-03-21 08:55 | PT.IPTN ---
Current Diagnoses Fracture of unspecified part of neck of left femur, initial encounter for closed fracture (03/17/24) Surgery Performed Operation Date: 03/18/24 08:00 Actual Procedures p Hip Hemiarthroplasty(Left) - Na Ruiz MD Physical Therapy Treatment Note M2 PT-IP Current Condition Start: 03/18/24 12:29 Freq: NEEDED Status: Active Protocol: Document 03/19/24 12:57 MB (Rec: 03/19/24 13:35 MB [id number]) Physical Therapy Current Condition Current Condition Evaluation Date 03/19/24 Treatment Diagnosis Left hip fracture s/p posterior JOCELYNE M3 PT-IP Subjective Start: 03/18/24 12:29 Freq: NEEDED Status: Active Protocol: Document 03/21/24 09:21 TS (Rec: 03/21/24 09:33 TS [id number]) Subjective Physical Therapy Visit Type Type Treatment Note Visit Start Time 08:55 Visit Stop Time 09:15 Number of TRUCK CHAUFFEUR Visits 2 Physical Therapy Visit Comments Patient Comments Pt found resting in chair, reports getting up with nursing and still has some lightheadedness. She is agreeabe to PT. Therapy Pain Assessment Pain When Pain Assessed At Rest Pain Present Pain Present Pain Reported M4 PT-IP Mobility and Gait Start: 03/18/24 12:29 Freq: NEEDED Status: Active Protocol: Document 03/21/24 09:21 TS (Rec: 03/21/24 09:33 TS [id number]) PT-Transfer Assessment Sit to and From Stand Sit to and from Stand Minimal Assistance,1 Person Assistance Equipment Transfer Assistive Device Gait Belt,Front Wheeled Walker Orthotic/Prosthetic Devices or Brace: No Comments Mobility Comments BP in sitting in chair 125/72. STS with FWW Jean Claude, pt dmeonstrates good carryover of STS technique. Bp in standing 111/62, pt denied dizziness. She ambulates ~3' with slow step to gait with Jean Claude and use of FWW. Pt reports dizzinesss and requests to sit back in chair. BP in sitting 102/65. Pt performs quad sets, glute sets and heel slides. Pt was left in the chair, all needs met. Gait Assessment Gait Gait Assistance Required: Minimum Assistance Distance (Feet) 3 Assistive Devices Assistive Device Gait Belt,Front Wheeled Walker Orthotic/Prosthetic Devices or Brace: No Gait Deviations General Gait Pattern Ataxic,Decreased Stride Length ,Decreased Feet Clearance, Flexed Trunk,Step-to Gait,Wide Based Gait Factors Limiting Gait Function Factors Limiting Gait Function Decreased Activity Tolerance, Decreased Strength, Incoordination,Limited Range of Motion,Pain,Poor Balance, Poor Safety Awareness PT-Balance Assessment Sitting Balance and Reactions Static Sitting Balance Ability Good Dynamic Sitting Balance Ability Fair Standing Balance and Reactions Static Standing Balance Ability Poor Dynamic Standing Balance Ability Poor Device Used FWW M5 PT-IP Objective Assessments Start: 03/18/24 12:29 Freq: NEEDED Status: Active Protocol: Document 03/19/24 12:57 MB (Rec: 03/19/24 13:35 MB [id number]) Orientation Orientation/Cognition Level of Alertness Alert Language Function Ability No Deficits Noted Safety Awareness Decreased Safety Awareness Memory Description No Deficits Noted Gross Range of Motion Upper Extremity ROM Impairments Defer to OT Lower Extremity ROM Assessment Left Impaired Impairments Guarding left LE and does not range hip much with cues for moving leg out to side and HS Strength Lower Extremity Strength Assessment Left Impaired Comments Strength Comments Left ankle DF and great toe extension are 5/5 Coordination Assessment Gross Coordination Gross Coordination Impaired Sensation Assessment Sensation Gross Sensation Left LE Impaired Muscle Tone Muscle Tone WNL Yes M6 PT-IP Treatment Start: 03/18/24 12:29 Freq: NEEDED Status: Active Protocol: Document 03/21/24 09:21 TS (Rec: 03/21/24 09:33 TS [id number]) Physical Therapy Treatment Exercises Exercises Gluteal Sets,Quad Sets,Heel Slides Education Education Provided Precautions,Weight Bearing Status,Post-Op Packet,Safety M7 PT-IP Assessment and Plan Start: 03/18/24 12:29 Freq: NEEDED Status: Active Protocol: Document 03/21/24 09:21 TS (Rec: 03/21/24 09:33 [id number]) PT Summary Assessment and Plan Potential Rehabilitation Potential Good Summary Impairments Pain,ROM,Strength,Balance, Coordination,Sensation,Bed Mobility,Transfers,Gait, Activity Tolerance Progress Towards Goals Slow Progress due to Pain,Slow Progress - Other Assessment Summary Monika continues to make slow progress with her mobility. She is limited by pain and ongoing hypotension. She progressed her gait to ~3' with FWW before becoming dizzy. She demonstrates good carryover of STS sequencing and her hip precautions. PT continues to recommend SNF at this time. Goals Bed Mobility Goal Independent Transfer Goal Independent,Front Wheeled Walker Gait Goal Independent,Front Wheel Walker Gait Distance 75 Other Goals Pt will ascend and descend 3 steps with left rail ascend and no more than CGA to allow safe RV entrance. Days to Meet Goals 5 Frequency of Treatment Other frequency 1-2x/day Treatment Plan Physical Therapy Treatment Plan Bed Mobility Training,Transfer Training,Gait Training, Therapeutic Exercise,Balance Retraining,Post Op Education, Discharge Planning,Hot or Cold Pack,Neuromuscular Re-ed, Coordination Retraining,Manual Therapy Precautions Posterior Hip Precautions No Hip Flexion > 90 degrees,No Hip Internal Rotation,No Hip Adduction Weight Bearing Status Weight Bearing Status Weight Bear as Tolerated Recommendations To Nursing Amount of Assist Needed 1 Person Assist Discharge Recommendations PT Discharge Recommendations Home vs SNF Equipment Needed for Home Before RW Discharge Transportation Needs at Discharge Private Vehicle,Wheelchair/ Cabulance
[2024-03-21] MEDS: buPROPion XL 150 MG TAB PO (09:24)
[2024-03-21] MEDS: ENOXAPARIN 40 MG/0.4 ML SYRINGE SUBCUT (09:24)
[2024-03-21] MEDS: DOCUSATE 100 MG CAPSULE PO ×2 (09:24→20:25)
--- NOTE | 2024-03-21 10:09 | P.PN_ITS ---
Subjective Subjective Interval history: Summary: She was admitted with hip fracture after a fall. She was status post repair. She was having persistent orthostasis in the morning with standing as well as slow progression. Subjective: Pain is well-controlled. She denies headache. No dyspnea or chest pain. Exam Vital Signs (past 8 hours): Oxygen Delivery Method Room Air Oxygen Flow Rate 0 Narrative Exam Narrative: NAD, alert and oriented. Fluent speech. Lungs are clear, normal rate and effort. Heart is regular, no murmur gallop or rub. Abdomen is soft, non distended. Extremities are free of edema. Const General: comfortable Orientation: alert Resp Effort & Inspection: normal respiratory effort and able to speak in complete sentences Objective Labs 03/19/24 13:28 03/17/24 05:34 [facility] Social History household members: spouse Smoking Status: Never smoker Assessment & Plan Assessment & Plan narrative: 1. Left hip fracture secondary to ground level fall. Present on admission and active. S/P ORIF 03/18. 2. UTI (pseudomonas on culture, sens to Cipro). Present on admission and active. 7 days Abx. 3. MS. Present on admission and active, and stable. -Being followed by [facility] neurology group as outpatient. No sign of MS flare. 4. Migraine headache, new and improved. PLAN: -ASA BID for DVT prophylaxis. -SNF 03/22 -Pain control. -continue Cipro. CHANEL: 03/22 [facility]. Time-Based Coding :: [TOTAL MINUTES] spent with patient and on the chart (including review of chart, obtaining history, exam, reviewing outside data, placing orders, documenting exam and treatment plan, and counseling patient) on [DATE].
--- NOTE | 2024-03-21 10:47 | PM.PNPO.1 ---
Subjective Subjective Date Patient Seen: 03/21/24 Time Patient Seen: 10:47 Interval history: Pain is mild at rest, moderate pain with activity. Still having dizziness when she gets up with physical therapy. Exam Vital Signs (past 8 hours): Oxygen Delivery Method Room Air Oxygen Flow Rate 0 Narrative Exam Narrative: 74-year-old female resting comfortably in bedside chair in no apparent distress. Neurovascular status is intact bilateral lower extremities. Const General: cooperative and healthy appearing Nutritional Appearance: average body habitus Orientation: alert Objective Labs 03/19/24 13:28 03/17/24 05:34 [facility] Social History household members: spouse Smoking Status: Never smoker Assessment & Plan Post-op Postoperative Procedures: Procedures Operation Date: 03/18/24 08:00 Actual Procedure Side Surgeon p Hip Hemiarthroplasty Left Na Ruiz MD Postoperative day: 3 Postoperative status narrative: Stable Postoperative plan narrative: Weight-bearing as tolerated, posterior hip precautions x6 weeks. Lovenox 40 mg subQ daily x4 weeks for DVT prophylaxis Follow up outpatient orthopedic clinic in 2 weeks for staple removal and wound check.
--- NOTE | 2024-03-21 11:26 | CM.DPC ---
DCP Cont. Reviewed EMR and team rounds for status updates. Called [facility] to clarify when they can accept, they will plan to transport her on , 03/22 at 11:00am. Will fax d/c clinicals and scripts prior to d/c.
--- NOTE | 2024-03-21 13:50 | PT.IPTN ---
Current Diagnoses Fracture of unspecified part of neck of left femur, initial encounter for closed fracture (03/17/24) Surgery Performed Operation Date: 03/18/24 08:00 Actual Procedures p Hip Hemiarthroplasty(Left) - Na Ruiz MD Physical Therapy Treatment Note M2 PT-IP Current Condition Start: 03/18/24 12:29 Freq: NEEDED Status: Active Protocol: Document 03/19/24 12:57 MB (Rec: 03/19/24 13:35 MB [id number]) Physical Therapy Current Condition Current Condition Evaluation Date 03/19/24 Treatment Diagnosis Left hip fracture s/p posterior JOCELYNE M3 PT-IP Subjective Start: 03/18/24 12:29 Freq: NEEDED Status: Active Protocol: Document 03/21/24 14:19 TS (Rec: 03/21/24 14:36 TS [id number]) Subjective Physical Therapy Visit Type Type Treatment Note Visit Start Time 13:50 Visit Stop Time 14:15 Number of SUPERVISOR METAL FURNITURE FABRICATION Visits 3 Physical Therapy Visit Comments Patient Comments Pt found resting in the chair, she is agreeable to PT. Therapy Pain Assessment Pain When Pain Assessed At Rest Pain Present Pain Present Pain Reported M4 PT-IP Mobility and Gait Start: 03/18/24 12:29 Freq: NEEDED Status: Active Protocol: Document 03/21/24 14:19 TS (Rec: 03/21/24 14:36 TS [id number]) PT-Transfer Assessment Sit to and From Stand Sit to and from Stand Minimal Assistance,1 Person Assistance Equipment Transfer Assistive Device Gait Belt,Front Wheeled Walker Orthotic/Prosthetic Devices or Brace: No Transfers Transfer Destination Bedside Commode Transfer Technique Stand Step Pivot Transfer Ability Level of Assist Contact Guard Assistance Comments Mobility Comments BP in supine 123/60. STS with FWW Jean Claude. BP in standing 89/59 , pt agreed to ambulate. She ambulates ~15' in the room, became lightheaded and wea. Pt sat on EOB for a rest break. She requests to use the commode. Pt transfers to commode with stand step pivot CGA. Pt was left on the commode, nursing in to assist pt. Gait Assessment Gait Gait Assistance Required: Contact Guard Assist Distance (Feet) 15 Able to Maintain Weight Bearing Status Yes During Gait Assistive Devices Assistive Device Gait Belt,Front Wheeled Walker Orthotic/Prosthetic Devices or Brace: No Gait Deviations General Gait Pattern Ataxic,Decreased Stride Length ,Decreased Feet Clearance, Flexed Trunk,Step-to Gait,Wide Based Gait Factors Limiting Gait Function Factors Limiting Gait Function Decreased Activity Tolerance, Decreased Strength, Incoordination,Limited Range of Motion,Pain,Poor Balance, Poor Safety Awareness PT-Balance Assessment Sitting Balance and Reactions Static Sitting Balance Ability Good Dynamic Sitting Balance Ability Fair Standing Balance and Reactions Static Standing Balance Ability Fair Dynamic Standing Balance Ability Fair Device Used FWW M5 PT-IP Objective Assessments Start: 03/18/24 12:29 Freq: NEEDED Status: Active Protocol: Document 03/19/24 12:57 MB (Rec: 03/19/24 13:35 MB [id number]) Orientation Orientation/Cognition Level of Alertness Alert Language Function Ability No Deficits Noted Safety Awareness Decreased Safety Awareness Memory Description No Deficits Noted Gross Range of Motion Upper Extremity ROM Impairments Defer to OT Lower Extremity ROM Assessment Left Impaired Impairments Guarding left LE and does not range hip much with cues for moving leg out to side and HS Strength Lower Extremity Strength Assessment Left Impaired Comments Strength Comments Left ankle DF and great toe extension are 5/5 Coordination Assessment Gross Coordination Gross Coordination Impaired Sensation Assessment Sensation Gross Sensation Left LE Impaired Muscle Tone Muscle Tone WNL Yes M6 PT-IP Treatment Start: 03/18/24 12:29 Freq: NEEDED Status: Active Protocol: Document 03/21/24 14:19 TS (Rec: 03/21/24 14:36 [id number]) Physical Therapy Treatment Education Education Provided Precautions,Weight Bearing Status,Post-Op Packet,Safety M7 PT-IP Assessment and Plan Start: 03/18/24 12:29 Freq: NEEDED Status: Active Protocol: Document 03/21/24 14:19 TS (Rec: 03/21/24 14:36 [id number]) PT Summary Assessment and Plan Potential Rehabilitation Potential Good Summary Impairments Pain,ROM,Strength,Balance, Coordination,Sensation,Bed Mobility,Transfers,Gait, Activity Tolerance Progress Towards Goals Slow Progress due to Pain,Slow Progress - Other Assessment Summary Monika continues to make slow progress with her mobility. She continues to be hypotensive and becomes lightheaded in standing preveting her from progressing . She did progress her gait ~ 15' and quickly required to sit due to symptoms. PT continues to recommend SNF at this time. Pt may be appropriate for home if medically stable. Goals Bed Mobility Goal Independent Transfer Goal Independent,Front Wheeled Walker Gait Goal Independent,Front Wheel Walker Gait Distance 75 Other Goals Pt will ascend and descend 3 steps with left rail ascend and no more than CGA to allow safe RV entrance. Days to Meet Goals 5 Frequency of Treatment Other frequency 1-2x/day Treatment Plan Physical Therapy Treatment Plan Bed Mobility Training,Transfer Training,Gait Training, Therapeutic Exercise,Balance Retraining,Post Op Education, Discharge Planning,Hot or Cold Pack,Neuromuscular Re-ed, Coordination Retraining,Manual Therapy Precautions Posterior Hip Precautions No Hip Flexion > 90 degrees,No Hip Internal Rotation,No Hip Adduction Weight Bearing Status Weight Bearing Status Weight Bear as Tolerated Recommendations To Nursing Amount of Assist Needed 1 Person Assist Discharge Recommendations PT Discharge Recommendations Home vs SNF Equipment Needed for Home Before RW Discharge Transportation Needs at Discharge Private Vehicle,Wheelchair/ Cabulance
[2024-03-21] MEDS: polyethylene glycoL 3350 17 GM POWD.PACK PO (15:47)
[2024-03-21 16:00] VITALS: BP 133/78; PULSE 89; RESP 16; TEMP 37.2; O2SAT 99
--- NOTE | 2024-03-21 16:14 | OT.IP.TRT ---
Current Diagnoses Fracture of unspecified part of neck of left femur, initial encounter for closed fracture (03/17/24) Surgery Performed Operation Date: 03/18/24 08:00 Actual Procedures p Hip Hemiarthroplasty(Left) - Na uRiz MD Occupational Therapy Treatment Note M2 OT-IP Current Condition Start: 03/19/24 09:17 Freq: Status: Active Protocol: Document 03/19/24 09:17 CGR (Rec: 03/19/24 09:34 CGR [id number]) Occupational Therapy Current Condition Current Condition Evaluation Date 03/19/24 Treatment Diagnosis fall with L hip fx, s/p hemiarthroplasty, posterior WBAT Diagnosis Onset Date 03/17/24 Post Operative Precautions Posterior Hip Precautions No Hip Flexion > 90 degrees,No Hip Internal Rotation,No Hip Adduction Weight Bearing Status Weight Bearing Status Weight Bear as Tolerated M3 OT- IP Subjective and Pain Start: 03/19/24 09:17 Freq: Status: Active Protocol: Document 03/21/24 16:00 [facility] (Rec: 03/21/24 16:50 [facility] [id number]) OT- Subjective Occupational Therapy Visit Type Visit Start Time 16:00 Visit Stop Time 16:14 Occupational Therapy Visit Comments Patient Comments Pt agreed to get up to the recliner for dinner. Patient/Caregiver Goals To go home. OT Pain Assessment Pain When Pain Assessed During Mobility Pain Present Pain Present Pain Reported Location Left Hip Intensity 2 Scale Used Numeric (0 - 10) M4 OT- IP ADL's Start: 03/19/24 09:17 Freq: Status: Active Protocol: Document 03/20/24 10:54 [facility] (Rec: 03/20/24 11:07 [facility] [id number]) OT ADL-Grooming General Evaluation Grooming Ability Standby Assistance Areas Needing Assistance Retrieving/Set-up of Grooming Items Comments OT Grooming Comments Able to while seated. OT ADL-Oral Care General Eval Oral Care Ability Independent OT ADL-Toileting Comments OT Toileting Comments Pt states just did earlier and now tired to get up. OT ADL-Bathing Comments OT Bathing Comments Pt will need assist and equipment for showering at this time. Pt too dizzy to be able to get to the shower at this time. M5 OT- IP IADL's Start: 03/19/24 09:17 Freq: Status: Active Protocol: Document 03/19/24 09:17 CGR (Rec: 03/19/24 09:34 CGR [id number]) OT-Instrumental Activities of Daily Living Deficits IADL Deficits Identified No Deficits Home Safety Awareness Awareness of Need for Assistance at Home Good Awareness Ability to Problem Solve Emergency Able to Problem Solve Situations Medication Management Medication Management No Deficits Identified Money Management Money Management No Deficits Identified Meal Preparation Meal Preparation No Deficits Identified Adjuster And Inspector Adjuster And Inspector No Deficits Identified 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 OT- IP Functional Cognition Start: 03/19/24 09:17 Freq: Status: Active Protocol: Document 03/21/24 16:00 [facility] (Rec: 03/21/24 16:50 [facility] [id number]) Cognitive Factors Limiting Selfcare Function Cognitive Ability Level of Alertness Alert Patient Orientation Name,Age,Birthday,Month,Date, Year,Day of Week,Place, Situation Attention Span Ability Capable of Focused Attention, Capable of Sustained Attention Ability to Follow Commands Able to Follow One Step Commands Cognitive Comments Cognitive Assessment Comments Pt able to state all the hip precautions. M7 OT- IP Mobility and Balance Start: 03/19/24 09:17 Freq: Status: Active Protocol: Document 03/21/24 16:00 [facility] (Rec: 03/21/24 16:50 [facility] [id number]) OT- Bed Mobility Assessment Supine to Sit Supine to Sit Assist Minimal Assistance OT-Transfer Assessment Sit to and From Stand Sit to and from Stand Minimal Assistance Transfers Transfer Ability Minimal Assistance,Moderate Assistance Technique Transfer Destination Bed,Chair Transfer Technique Stand Step Pivot Devices Transfer Assistive Devices Gait Belt,Front Wheeled Walker Comments Mobility Comments Pt sit to stand with FWW with MIN/MODA to stand. LAURA with FWW to walk to the recliner. Pt showing good safety for her hip precautions. OT- Balance Assessment Sitting Balance and Reactions Static Sitting Balance Ability Good Dynamic Sitting Balance Ability Good Standing Balance and Reactions Static Standing Balance Ability Fair Dynamic Standing Balance Ability Fair M8 OT- IP Objective Assessments Start: 03/19/24 09:17 Freq: Status: Active Protocol: Document 03/19/24 09:17 CGR (Rec: 03/19/24 09:34 CGR [id number]) OT Gross Range of Motion Upper Extremity Range of Motion Assessment Within Functional Limits OT Strength Upper Extremity Strength Assessment Within Functional Limits Comments Strength Comments grossly 4+ to 5-/5 OT- Coordination Assessment Upper Extremity Finger to Nose Test Within Functional Limits Finger Tapping Test Within Functional Limits OT-Muscle Tone Assessment Muscle Tone WNL Yes OT Sensation Assessment Edema Edema Absent M9 OT- IP Assessment and Plan Start: 03/19/24 09:17 Freq: Status: Active Protocol: Document 03/21/24 16:00 [facility] (Rec: 03/21/24 16:50 [facility] [id number]) OT Summary Assessment and Plan Potential Rehabilitation Potential Good Analytic Complexity at Evaluation Moderate Summary OT Impairments Pain,Balance,Functional Mobility,Dressing,Toileting, Bathing,Toilet Transfers, Shower Transfers,Activity Tolerance Progress Towards Goals Slow Progress due to Pain Assessment Summary Pt still needing lots of assistance for bed mobility needs do to weakness of LLE. Pt has good follow through for her hip precautions today. Able to re-review techniques for ADL needs. Pt to go to skilled rehab when medically stable. Goals Grooming Goal Independent Dressing Goal Independent Toileting Goal Independent Bathing Goal Independent Toilet Transfer Goal Independent Shower Transfer Goal Independent Days to Meet Goals 10 Frequency of Treatment Other frequency 5x a week Treatment Plan OT Treatment Plan ADL Training,Functional Mobility,Patient/Family Education,Discharge Planning Discharge Recommendations OT Discharge Recommendations Home with 17/01 Assist Available,Home Health,SNF Rehab Home Equipment Needs 2ww, BSC or toilet heighter, tub transfer bench Transportation Needs at Discharge Private Vehicle,Wheelchair/ Cabulance
[2024-03-21 20:00] VITALS: BP 118/72; PULSE 85; RESP 20; TEMP 37.2; O2SAT 92
[2024-03-22] MEDS: ACETAMINOPHEN 325 MG TABLET 650 MG PO ×2 (00:03→06:03)
[2024-03-22 04:00] VITALS: BP 124/73; PULSE 76; RESP 19; TEMP 36.7; O2SAT 95
[2024-03-22] MEDS: CIPROFLOXACIN 250 MG TABLET 500 MG PO (06:03)
[2024-03-22 08:00] VITALS: BP 125/68; PULSE 83; RESP 16; TEMP 36.8; O2SAT 98
[2024-03-22] MEDS: ENOXAPARIN 40 MG/0.4 ML SYRINGE SUBCUT (08:32)
[2024-03-22] MEDS: buPROPion XL 150 MG TAB PO (08:32)
[2024-03-22] MEDS: DOCUSATE 100 MG CAPSULE PO (08:32)
--- NOTE | 2024-03-22 08:53 | PT.IPTN ---
Current Diagnoses Fracture of unspecified part of neck of left femur, initial encounter for closed fracture (03/17/24) Surgery Performed Operation Date: 03/18/24 08:00 Actual Procedures p Hip Hemiarthroplasty(Left) - Na Ruiz MD Physical Therapy Treatment Note M2 PT-IP Current Condition Start: 03/18/24 12:29 Freq: NEEDED Status: Active Protocol: Document 03/19/24 12:57 MB (Rec: 03/19/24 13:35 MB [id number]) Physical Therapy Current Condition Current Condition Evaluation Date 03/19/24 Treatment Diagnosis Left hip fracture s/p posterior JOCELYNE M3 PT-IP Subjective Start: 03/18/24 12:29 Freq: NEEDED Status: Active Protocol: Document 03/22/24 09:17 TS (Rec: 03/22/24 09:35 TS [id number]) Subjective Physical Therapy Visit Type Type Treatment Note Visit Start Time 08:53 Visit Stop Time 09:17 Number of SENIOR COURTROOM CLERK Visits 4 Physical Therapy Visit Comments Patient Comments Pt found resting in bed, reports going to rehab today, she is agreeable to PT. Therapy Pain Assessment Pain When Pain Assessed During Mobility Pain Present Pain Present Pain Reported M4 PT-IP Mobility and Gait Start: 03/18/24 12:29 Freq: NEEDED Status: Active Protocol: Document 03/22/24 09:17 TS (Rec: 03/22/24 09:35 TS [id number]) PT-Bed Mobility Assessment Supine to Sit Supine to Sit Minimal Assistance,1 Person Assistance,Head of Bed Elevated,Bedrails Scooting Scooting to Edge of Bed Contact Guard Assistance PT-Transfer Assessment Sit to and From Stand Sit to and from Stand Minimal Assistance Equipment Transfer Assistive Device Gait Belt,Front Wheeled Walker Comments Mobility Comments BP in supine 124/70. Supine to sit Jean Claude for trunk stability, pt uses gait belt strap to assist LLE to EOB. Pt reports lightheadedness sitting EOB, BP in sitting 108/70. STS with FWW Jean Claude and bed elevated. She ambulates ~15' in the room before sitting in the chair, pt reprots lightheadedness. Pt was left in the chair, all needs met. Gait Assessment Gait Gait Assistance Required: Contact Guard Assist Distance (Feet) 15 Able to Maintain Weight Bearing Status Yes During Gait Assistive Devices Assistive Device Gait Belt,Front Wheeled Walker Gait Deviations General Gait Pattern Ataxic,Decreased Stride Length ,Decreased Feet Clearance, Flexed Trunk,Step-to Gait,Wide Based Gait Factors Limiting Gait Function Factors Limiting Gait Function Decreased Activity Tolerance, Decreased Strength, Incoordination,Limited Range of Motion,Pain,Poor Balance, Poor Safety Awareness PT-Balance Assessment Sitting Balance and Reactions Static Sitting Balance Ability Good Dynamic Sitting Balance Ability Good Standing Balance and Reactions Static Standing Balance Ability Fair Dynamic Standing Balance Ability Fair Device Used FWW M5 PT-IP Objective Assessments Start: 03/18/24 12:29 Freq: NEEDED Status: Active Protocol: Document 03/19/24 12:57 MB (Rec: 03/19/24 13:35 MB [id number]) Orientation Orientation/Cognition Level of Alertness Alert Language Function Ability No Deficits Noted Safety Awareness Decreased Safety Awareness Memory Description No Deficits Noted Gross Range of Motion Upper Extremity ROM Impairments Defer to OT Lower Extremity ROM Assessment Left Impaired Impairments Guarding left LE and does not range hip much with cues for moving leg out to side and HS Strength Lower Extremity Strength Assessment Left Impaired Comments Strength Comments Left ankle DF and great toe extension are 5/5 Coordination Assessment Gross Coordination Gross Coordination Impaired Sensation Assessment Sensation Gross Sensation Left LE Impaired Muscle Tone Muscle Tone WNL Yes M6 PT-IP Treatment Start: 03/18/24 12:29 Freq: NEEDED Status: Active Protocol: Document 03/22/24 09:17 TS (Rec: 03/22/24 09:35 [id number]) Physical Therapy Treatment Education Education Provided Precautions,Weight Bearing Status,Post-Op Packet,Safety M7 PT-IP Assessment and Plan Start: 03/18/24 12:29 Freq: NEEDED Status: Active Protocol: Document 03/22/24 09:17 TS (Rec: 03/22/24 09:35 [id number]) PT Summary Assessment and Plan Potential Rehabilitation Potential Good Summary Impairments Pain,ROM,Strength,Balance, Coordination,Sensation,Bed Mobility,Transfers,Gait, Activity Tolerance Progress Towards Goals Slow Progress due to Pain,Slow Progress - Other Assessment Summary Monika continues to make slow progress with her mobility. She is limited by pain and ongoing hypotension. She becomes lightheaded sitting and increases when in standing. She continues to ambulate short distances in the room with the FWW. PT continues to recommend SNF at this time. Goals Bed Mobility Goal Independent Transfer Goal Independent,Front Wheeled Walker Gait Goal Independent,Front Wheel Walker Gait Distance 75 Other Goals Pt will ascend and descend 3 steps with left rail ascend and no more than CGA to allow safe RV entrance. Days to Meet Goals 5 Frequency of Treatment Other frequency 1-2x/day Treatment Plan Physical Therapy Treatment Plan Bed Mobility Training,Transfer Training,Gait Training, Therapeutic Exercise,Balance Retraining,Post Op Education, Discharge Planning,Hot or Cold Pack,Neuromuscular Re-ed, Coordination Retraining,Manual Therapy Precautions Posterior Hip Precautions No Hip Flexion > 90 degrees,No Hip Internal Rotation,No Hip Adduction Weight Bearing Status Weight Bearing Status Weight Bear as Tolerated Recommendations To Nursing Amount of Assist Needed 1 Person Assist Discharge Recommendations PT Discharge Recommendations Home vs SNF Equipment Needed for Home Before RW Discharge Transportation Needs at Discharge Private Vehicle,Wheelchair/ Cabulance
--- NOTE | 2024-03-22 09:39 | P.DS_ITS ---
History of Present Illness History of Present Illness Chief complaint: fall L hip Narrative: From night doctor: 74 year old female with past medical history of multiple sclerosis diagnosed 12 years ago and being followed by [facility] and severe left knee pain sceondary to OA awaiting surgery in 09/2024 presents with a ground level fall. Per the patient's report, the patient states that she was walking when she accidentally loss balance and fell onto her left hip. The patient denies any head injury or LOC. The patient also denies any recent fever, chills, nausea, vomiting, diarrhea, chest pain or shortness of breath. The patient states that she has significant pain in her left hip post fall and unable to ambulate. In our ER, the patient was hemodynamically stable. Xray shows left hip fracture. Orthopedic surgeon consulted and recommendedd admission for possible surgical intervention in AM. Labs and EKG are benign. However UA shows some LEs and few bacteria. Additional infrmation: She has a history of migraine headaches which are responsive to sumatriptan. She was a headache this morning. This is throbbing and there is some photophobia. She was some nausea as well. Her hip pain is controlled. Orthopedic surgery did see her this morning are discussing repair of the hip today versus tomorrow depending on OR schedule. Discharge Providers Provider Date of admission: 03/17/24 01:20 Discharge Date: 03/22/24 Consults: 03/17/24 01:41 Consult to Occupational Therapy Evaluate & Treat Comment: Physician Instructions: Evaluate and treat Consult to Physical Therapy Evaluate & Treat Comment: Physician Instructions: Evaluate and Treat 03/18/24 11:06 Consult to Anesthesiology Routine Comment: Consulting Provider: Anesthesiologist Reason for consultation: Regional block for post operative pain control Has provider been notified: No 03/18/24 11:49 Consult to Discharge Planning Routine Comment: Consult to Occupational Therapy Evaluate & Treat Comment: Physician Instructions: Evaluate and treat Consult to Physical Therapy Evaluate & Treat Comment: Physician Instructions: post op JOCELYNE protocol Discharge provider: Oj Patel MD Summary Hospital Course Discharge Diagnosis: 1. Left hip fracture secondary to ground level fall. Present on admission and active. S/P THR 03/18. 2. UTI (pseudomonas on culture, sens to Cipro). Present on admission and active. 3. MS. Present on admission and active, and stable. -Being followed by [facility] as outpatient. No sign of MS flare. 4. Migraine headache, new and improved. Hospital Course: She was admitted with a hip fracture and underwent an operative repair with a left hip arthroplasty. She did well postoperatively with the exception of persistent orthostasis with movement. Her pain control improved on a daily basis. Because of her dizziness and slow progression a longterm facility rehabilitation was recommended. She was stable for discharge to the longterm facility on March 22. He was a b.i.d. for DVT prophylaxis. Five additional days of oral antibiotics for her UTI. Status at Discharge Cognitive/behavioral status at discharge: oriented Functional status at discharge: independent ambulation Overall status at discharge: patient is back to baseline Time Spent with Patient Time spent: Greater than 30 minutes Exam Vital Signs (past 8 hours): - 03/22/24 04:00 Temperature 98.1 F Pulse Rate 76 Respiratory Rate 19 Blood Pressure 124/73 Pulse Oximetry 95 Oxygen Flow Rate 0 Oxygen Delivery Method Room Air Oxygen Flow Rate 0 Narrative Exam Narrative: NAD, alert and oriented. Fluent speech. Lungs are clear, normal rate and effort. Heart is regular, no murmur gallop or rub. Abdomen is soft, non distended. Extremities are free of edema. Good pedal pulses. No leg edema. Objective Imaging Multiple studies:: Radiologist's impression: Chest x-ray: Limited single view radiograph with low lung volumes. No acute abnormality. Prominent heart size and hilar structures, otherwise indeterminate on radiography. Hip x-ray: FINDINGS: Bones: Moderately impacted and displaced left subcapital hip fracture. Background degenerative changes. Soft tissues: No suspicious calcifications IMPRESSION: Left hip fracture Labs 03/19/24 13:28 03/17/24 05:34 [facility] Social History household members: spouse Smoking Status: Never smoker Discharge Assessment & Plan Assessment and Plan Assessment: 1. Left hip fracture secondary to ground level fall. Present on admission and active. S/P THR 03/18. 2. UTI (pseudomonas on culture, sens to Cipro). Present on admission and active. 3. MS. Present on admission and active, and stable. -Being followed by [facility] as outpatient. No sign of MS flare. 4. Migraine headache, new and improved. Plan of Treatment: Discharge to longterm facility for ongoing rehabilitative efforts. Antibiotics for 4 additional days for UTI, and aspirin b.i.d. for DVT prophylaxis. Discharge Plan Discharge Plan Patient Disposition: SNF Transfer to: [facility] Under care of provider: Dr Vásquez Provider Discharge Comment: Stable for discharge to longterm facility. Discharge orders & Medications Prescriptions: New ciprofloxacin HCl 250 mg Tablet 500 mg PO 0700,2100 Qty: 10 0RF oxycodone 5 mg Tablet 5 mg PO Q4HR PRN (Reason: Pain, Moderate (4-6)) Qty: 15 0RF aspirin 81 mg tablet,chewable 81 mg PO BID Qty: 60 0RF Continued bupropion HCl 150 mg tablet extended release 24 hr 150 mg PO DAILY gabapentin 300 mg capsule 300 mg PO 4XD PRN (Reason: restless leg) metronidazole 1 % gel 1 applic topical DAILY oxcarbazepine 300 mg tablet 300 mg PO 3XD PRN (Reason: Restless Leg(S)) Imitrex 50 mg DIRECTED PRN (Reason: Migraine Headache) Follow up/Referrals: Na Ruiz MD [Physician] - (Follow up in 2 weeks w/ [facility] or Orthopedic group in [place] for staple removal and post-op wound check.) Discharge Health Status Multidrug resistant organism: No MDRO Diet/Activity/Treatments Diet: Diet as Tolerated Liquid consistency: Normal/Thin Food texture: Regular Activity: WBAT, posterior hip precautions for 6 weeks. Cold/Heat Therapy: Ice to the hip for additional pain control. Skin/Wound/Dressing Care Report to your healthcare provider any signs of infection, such as:: chills, fever, night sweats, unusual drainage and unusual redness Dressing: Keep dressing intact, clean and dry until 2 week post-op appointment. No soaking the incision site in pools or tubs. No topical ointments or creams to the incision site. Special Rehabilitation Services Reason for rehabilitation: Post-operative therapy Rehab type: Physical therapy Visit Report/Discharge Packet Stand Alone Forms: Patient Portal/API
--- NOTE | 2024-03-22 11:48 | CM.DPNOTE ---
DC Note Patient has been discharged today, [facility] has accepted. 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 MADHAV Ricks, kindly agreed to coordinate the details of this discharge, all ppk emailed to Solange at [facility]. 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 Met w/patient to review discharge plan, patient and family agreeable. Plan: Discharge to [facility] via wheelchair van. AMARA
--- NOTE | 2024-03-22 13:58 | PC.NURSE ---
Patient is A&OX4. VSS,afebrile on RA.Patient is cleared for discharge to [facility] today. She verbalizes understanding of d/c meds, activity limitations, site care, as well as need for follow up/staple removal appt in 10 days with ortho. She is escorted by facility designee via w/ch at 1240 this afternoon with all of her personal belongings. at bedside.
== END 2024-03-22 12:40 | DRG 522 ==
LOC: ED 03-17 01:20 → AC 03-17 01:20
PROVIDERS: Hospitalist; Orthopaedic Surgery Foot and Ankle Surgery; Admitting Provider Internal Medicine; Emergency Provider Emergency Medicine; Referring Provider Emergency Medicine; Visit Provider Internal Medicine
PROC: 0SRS0JZ Replacement of Left Hip Joint, Femoral Surface with Synthetic Substitute, Open Approach (ICD-10-PCS; CPT 27125; principal; 2024-03-18 08:00)
DX: M80.052A Age-related osteoporosis with current pathological fracture, left femur, initial encounter for fracture (principal); N39.0 Urinary tract infection, site not specified; G35 Multiple sclerosis; G43.909 Migraine, unspecified, not intractable, without status migrainosus; B96.5 Pseudomonas (aeruginosa) (mallei) (pseudomallei) as the cause of diseases classified elsewhere
CPT/HCPCS: 36415; 71045; 72170; 73502; 80048; 80053; 81001; 85014; 85018; 85025; 85610; 87077; 87086; 87186; 93005; 96374; 96375; 96376; 97116; 97161; 97166; 97530; 97535; 99284; 99285; C1776; C9290; J0171; J0330; J0690; J0696; J1100; J1170; J1650; J1885; J2250; J2405; J2704; J2765; J3010; J3030